=== PATIENT | female | born 1935 | race Caucasian/White ===

== ENCOUNTER 2018-02-27 14:18 | Inpatient (IN) | payer MEDICARE, BC ==
[2018-02-27] MEDS ORDERED: Ondansetron 4 MG Tab.DIS PO PRN (15:24)
[2018-02-27] MEDS ORDERED: Temazepam 15 MG Cap PO PRN (15:24)
[2018-02-27] MEDS ORDERED: Sodium Chloride 0.9% 1,000 ML IV SCH (15:30)
[2018-02-27] MEDS ORDERED: Enoxaparin 40 MG/0.4 ML Syringe SUBCUT SCH ×2 (16:30→20:00)
[2018-02-27] MEDS ORDERED: Iopamidol 612 MG/ML 100 ML Bottle IVPUSH ONE (16:37)
[2018-02-27] MEDS ORDERED: Ampicillin/Sulbactam Na 3 GM in Sodium Chloride 0.9% 100 ML IV SCH (17:00)
[2018-02-27] MEDS: Pantoprazole 40 MG Vial IVPUSH SCH (17:27)
[2018-02-28] MEDS: Pantoprazole 40 MG Vial IVPUSH SCH (06:49)
[2018-02-28 07:43] VITALS: BP 146/55
--- NOTE | 2018-02-28 09:32 | PCM.DCSUM1 ---
Discharge Summary - Hospital Course HPI Initial Comments: This patient is an 83 year old female that was admitted yesterday for abdominal pain. Patient does have history of Diverticulitis. The patient ct results yesterday show no diverticulitis, show gallstones. I have discontinued her abx tx. The patient reports that she has had two episodes of abdominal pain across the lower abdomen. She reports these two episodes are both after she ate a hamburger and fries at [facility]. Today, the patient reports that her pain is completely resolved. She reports that she would like to go home. Patient labs are unremarkable. I will discharge the patient home, she should followup with PCP this week and return if pain returns. - Discharge Data Discharge Date: 02/28/18 Discharge Disposition: Home, Self-Care 01 Condition: Good - Patient Instructions Diet, Other: [place] diet, no greasy foods, no fatty foods, no fast food. Activity: As Tolerated Driving: May Drive Today Showering/Bathing: May Shower Notify Provider of: Fever, Increased Pain, Nausea and/or Vomiting - Discharge Plan Home Medications: Home Meds Acetaminophen [Tylenol Extra Strength] 500 mg PO ASDIRECTED PRN 06/14/14 [ History] Aspirin [Halfprin] 162 mg PO BEDTIME 06/14/14 [History] Cholecalciferol (Vitamin D3) [Vitamin D3] 4,000 units PO DAILY 06/14/14 [History ] atorvaSTATin Calcium [Atorvastatin Calcium] 10 mg PO BEDTIME 06/14/14 [History] Betamethasone Valerate [Valisone 0.1% Crm] 1 applic TOP ASDIRECTED PRN 02/27/18 [History] Estradiol 0.5 mg PO DAILY 02/27/18 [History] Fish Oil/Centre-3 Fatty Acids [Fish Oil 1,000 MG] 1 gm PO DAILY 02/27/18 [History ] Flaxseed Oil 1,000 mg PO DAILY 02/27/18 [History] Lutein/Minerals/Vit A,C & E [Ocuvite] 1 tab PO DAILY 02/27/18 [History] Magnesium Oxide 500 mg PO DAILY 02/27/18 [History] Patient Handouts: Cholelithiasis, [id number] - Discharge Summary/Plan Comment DC Time >30 min.: No Discharge Summary/Plan Comment: Followup with your primary care provider Return to the ER for worsening of condition or any emergent concerns Increase fluids [place] diet, no greasy foods, no fatty foods, no fast food - General Info Date of Service: 02/28/18 Functional Status: Reports: Pain Controlled, Tolerating Diet, Ambulating - Review of Systems General: Reports: No Symptoms HEENT: Reports: No Symptoms Pulmonary: Reports: No Symptoms Cardiovascular: Reports: No Symptoms Gastrointestinal: Reports: No Symptoms Genitourinary: Reports: No Symptoms Musculoskeletal: Reports: No Symptoms Skin: Reports: No Symptoms Neurological: Reports: No Symptoms Psychiatric: Reports: No Symptoms - Patient Data Vitals - Most Recent: Last Vital Signs Temp 97.0 F 02/28/18 07:42 Pulse 60 02/28/18 07:42 Resp 20 02/28/18 07:42 BP 146/55 H 02/28/18 07:42 Pulse Ox 98 02/28/18 07:42 Weight - Most Recent: 219 lb 14.4 oz I&O - Last 24 hours: Intake & Output 02/27/18 02/28/18 02/28/18 22:59 06:59 14:59 Intake Total 365 350 Output Total 750 700 Balance -385 -350 Lab Results - Last 24 hrs: Laboratory Results - last 24 hr 02/27/18 02/27/18 02/27/18 Range/Units 14:25 15:50 15:50 WBC 5.6 (5.0-10.0) 10^3/uL RBC 4.56 (4.00-5.50) 10^6/uL Hgb 11.9 L (12.0-16.0) g/dL Hct 38.2 (37.0-47.0) % MCV 83.8 (82.0-94.0) fL MCH 26.1 L (27.0-32.0) pg MCHC 31.2 L (33.0-38.0) g/dL RDW Coeff of June 15.8 H (11.0-15.0) % Plt Count 140 L (150-400) 10^3/uL Neut % (Auto) 55.2 (35-85) % Lymph % (Auto) 31.9 (10-55) % [place] % (Auto) 10.9 (0-16) % Eos % (Auto) 1.6 (0-5) % Baso % (Auto) 0.4 (0-3) % Neut # (Auto) 3.11 (1.80-7.00) 10^3/uL Lymph # (Auto) 1.79 (1.00-4.80) 10^3/uL [place] # (Auto) 0.61 (0.00-0.80) 10^3/uL Eos # (Auto) 0.09 (0.00-0.45) 10^3/uL Baso # (Auto) 0.02 10^3/uL Sodium 141 (136-145) mEq/L Potassium 4.4 (3.5-5.0) mEq/L Chloride 107 H (98-106) mEq/L Carbon Dioxide 31 (21-32) mmol/L BUN 21 H (7-18) mg/dL Creatinine 1.2 H (0.6-1.0) mg/dL Est Cr Clr Drug Dosing 31.40 mL/min Estimated GFR (MDRD) 43 L (>=60) mL/min Glucose 112 H (75-99) mg/dL Calcium 8.9 (8.4-10.1) mg/dL Total Bilirubin 0.6 (0.0-1.0) mg/dL AST 22 (15-37) U/L ALT 18 (12-78) U/L Alkaline Phosphatase 83 (46-116) U/L C-Reactive Protein 0.5 (0.2-0.8) mg/dL Total Protein 8.1 (6.4-8.2) g/dL Albumin 3.7 (3.4-5.0) g/dL Amylase (25-115) U/L Urine Color Yellow (YELLOW) Urine Appearance Clear (CLEAR) Urine pH 5.5 (4.5-8.0) Ur Specific [place] 1.010 (1.003-1.020) Urine Protein Negative (NEGATIVE) mg/dL Urine Glucose (UA) Negative (NEGATIVE) mg/dL Urine Ketones Negative (NEGATIVE) mg/dL Urine Occult Blood Negative (NEGATIVE) Urine Nitrite Negative (NEGATIVE) Urine Bilirubin Negative (NEGATIVE) Urine Urobilinogen 0.2 (0.2-1.0) EU/dL Ur Leukocyte Esterase Negative (NEGATIVE) Urine RBC Not seen (0-5) /HPF Urine WBC 0-5 (0-5) /HPF Ur Squamous Epith Cells Occasional H (NOT SEEN) /HPF Urine Bacteria Occasional H (NOT SEEN) /HPF 02/28/18 02/28/18 Range/Units 07:20 07:20 WBC 4.1 L (5.0-10.0) 10^3/uL RBC 4.49 (4.00-5.50) 10^6/uL Hgb 11.7 L (12.0-16.0) g/dL Hct 38.0 (37.0-47.0) % MCV 84.6 (82.0-94.0) fL MCH 26.1 L (27.0-32.0) pg MCHC 30.8 L (33.0-38.0) g/dL RDW Coeff of June 15.7 H (11.0-15.0) % Plt Count 136 L (150-400) 10^3/uL Neut % (Auto) 50.6 (35-85) % Lymph % (Auto) 34.3 (10-55) % [place] % (Auto) 13.0 (0-16) % Eos % (Auto) 1.9 (0-5) % Baso % (Auto) 0.2 (0-3) % Neut # (Auto) 2.09 (1.80-7.00) 10^3/uL Lymph # (Auto) 1.42 (1.00-4.80) 10^3/uL [place] # (Auto) 0.54 (0.00-0.80) 10^3/uL Eos # (Auto) 0.08 (0.00-0.45) 10^3/uL Baso # (Auto) 0.01 10^3/uL Sodium 140 (136-145) mEq/L Potassium 4.5 (3.5-5.0) mEq/L Chloride 107 H (98-106) mEq/L Carbon Dioxide 31 (21-32) mmol/L BUN 14 (7-18) mg/dL Creatinine 1.1 H (0.6-1.0) mg/dL Est Cr Clr Drug Dosing 34.26 mL/min Estimated GFR (MDRD) 47 L (>=60) mL/min Glucose 92 (75-99) mg/dL Calcium 8.4 (8.4-10.1) mg/dL Total Bilirubin 0.7 (0.0-1.0) mg/dL AST 19 (15-37) U/L ALT 15 (12-78) U/L Alkaline Phosphatase 73 (46-116) U/L C-Reactive Protein (0.2-0.8) mg/dL Total Protein 7.5 (6.4-8.2) g/dL Albumin 3.3 L (3.4-5.0) g/dL Amylase 64 (25-115) U/L Urine Color (YELLOW) Urine Appearance (CLEAR) Urine pH (4.5-8.0) Ur Specific [place] (1.003-1.020) Urine Protein (NEGATIVE) mg/dL Urine Glucose (UA) (NEGATIVE) mg/dL Urine Ketones (NEGATIVE) mg/dL Urine Occult Blood (NEGATIVE) Urine Nitrite (NEGATIVE) Urine Bilirubin (NEGATIVE) Urine Urobilinogen (0.2-1.0) EU/dL Ur Leukocyte Esterase (NEGATIVE) Urine RBC (0-5) /HPF Urine WBC (0-5) /HPF Ur Squamous Epith Cells (NOT SEEN) /HPF Urine Bacteria (NOT SEEN) /HPF Med Orders - Current: Current Medications Enoxaparin Sodium (Lovenox) 40 mg SUBCUT Q24H [facility] Last Admin: 02/27/18 19:47 Dose: 40 mg Sodium Chloride (Normal Saline) 1,000 mls @ 75 mls/hr IV ASDIRECTED [facility] Last Admin: 02/27/18 17:27 Dose: 75 mls/hr Ondansetron HCl (Zofran Odt) 4 mg PO Q4H PRN PRN Reason: nausea, able to take PO Pantoprazole Sodium (Protonix Iv) 40 mg IVPUSH DAILY@0700 [facility] Last Admin: 02/28/18 06:49 Dose: 40 mg Temazepam (Restoril) 15 mg PO BEDTIME PRN PRN Reason: Sleep Discontinued Medications Ampicillin Sodium/Sulbactam (Sodium 3 gm/ Sodium Chloride) 100 mls @ 200 mls/ hr IV 0400,1000,1600,2200 [facility] Last Admin: 02/27/18 17:28 Dose: 200 mls/hr Iopamidol (Isovue-300 (61%)) 100 ml IVPUSH ONETIME ONE Stop: 02/27/18 16:38 Last Admin: 02/27/18 17:01 Dose: 100 ml - Exam General: Reports: Alert, Oriented, Cooperative, No Acute Distress Neck: Reports: Supple Lungs: Reports: Clear to Auscultation, Normal Respiratory Effort Cardiovascular: Reports: Regular Rate, Regular Rhythm, Murmurs (grade 3) GI/Abdominal Exam: Normal Bowel Sounds, Soft, Non-Tender, No Organomegaly, No Distention, No Abnormal Bruit, No Mass, Pelvis Stable (Female) Exam: Deferred Rectal (Female) Exam: Deferred Back Exam: Reports: Normal Inspection, Full Range of Motion Extremities: Normal Inspection, Normal Range of Motion, Non-Tender, Normal Capillary Refill, Pedal Edema (+1 BLE, chronic. ) Skin: Reports: Warm, Dry, Intact Neurological: Reports: No New Focal Deficit, Normal Gait, Normal Speech Psy/Mental Status: Reports: Alert, Normal Affect, Normal Mood
== END 2018-02-28 10:40 | disposition home or self-care (01) | DRG 392 ==
LOC: CC.MS 14:18 → CC.FCMC 14:18 → CC.MS 14:58 → UNDOADMIN 14:58 → CC.MS 15:24
PROVIDERS: ADMIT Family Medicine; ATTEND Family Medicine
DX: R10.30 Lower abdominal pain, unspecified (principal); R30.0 Dysuria; I25.10 Atherosclerotic heart disease of native coronary artery without angina pectoris; R39.15 Urgency of urination; R35.0 Frequency of micturition; R32 Unspecified urinary incontinence; Z88.7 Allergy status to serum and vaccine; Z96.659 Presence of unspecified artificial knee joint; Z90.710 Acquired absence of both cervix and uterus; Z88.8 Allergy status to other drugs, medicaments and biological substances; Z88.1 Allergy status to other antibiotic agents; Z91.040 Latex allergy status; Z79.82 Long term (current) use of aspirin; Z79.899 Other long term (current) drug therapy
CPT/HCPCS: 36415; 74177; 76705; 80053; 81001; 82150; 85025; 86140; C9113; J0295; J1650; J7030; J7050; Q9967

== ENCOUNTER 2020-03-18 14:48 | Inpatient (IN) | payer MEDICARE, BC ==
[2020-03-18] MEDS ORDERED: Acetaminophen/HYDROcodone 325-5 MG Tab PO PRN (15:02)
[2020-03-18] MEDS ORDERED: Sodium Chloride 0.9% 10 ML Syringe FLUSH PRN (15:02)
[2020-03-18 15:35] LABS: CHLORIDE,CL 106 mEq/L (98-106); SODIUM,NA 140 mEq/L (136-145)
[2020-03-18] MEDS: Enoxaparin 30 MG/0.3 ML Syringe SUBCUT SCH (16:59)
[2020-03-18] MEDS: Acetaminophen 325 MG Tab PO PRN (18:07)
--- NOTE | 2020-03-19 15:02 | PCM.PN ---
- General Info Date of Service: 03/19/20 Functional Status: Reports: Pain Controlled, Tolerating Diet, Ambulating - Review of Systems General: Reports: No Symptoms, Fever HEENT: Reports: No Symptoms Pulmonary: Reports: No Symptoms Cardiovascular: Reports: No Symptoms Gastrointestinal: Reports: No Symptoms Genitourinary: Reports: No Symptoms Musculoskeletal: Reports: Leg Pain (RLL pain) Skin: Reports: Bruising (RLL), Other (Redness RLL) Neurological: Reports: No Symptoms Psychiatric: Reports: No Symptoms - Patient Data Vitals - Most Recent: Last Vital Signs Temp 97.8 F 03/19/20 11:19 Pulse 61 03/19/20 11:19 Resp 16 03/19/20 11:19 BP 104/40 L 03/19/20 11:19 Pulse Ox 96 03/19/20 11:19 Weight - Most Recent: 220 lb Lab Results Last 24 Hours: Laboratory Results - last 24 hr 03/18/20 03/18/20 03/19/20 Range/Units 15:02 15:02 05:00 WBC 6.6 5.2 (5.0-10.0) 10^3/uL RBC 4.19 3.96 L (4.00-5.50) 10^6/uL Hgb 11.2 L 10.6 L (12.0-16.0) g/dL Hct 36.2 L 34.0 L (37.0-47.0) % MCV 86.4 85.9 (82.0-94.0) fL MCH 26.7 L 26.8 L (27.0-32.0) pg MCHC 30.9 L 31.2 L (33.0-38.0) g/dL RDW Coeff of June 15.9 H 15.7 H (11.0-15.0) % Plt Count 182 169 (150-400) 10^3/uL Neut % (Auto) 61.7 56.3 (35-85) % Lymph % (Auto) 25.9 28.3 (10-55) % [place] % (Auto) 10.3 12.1 (0-16) % Eos % (Auto) 1.8 2.9 (0-5) % Baso % (Auto) 0.3 0.4 (0-3) % Neut # (Auto) 4.07 2.92 (1.80-7.00) 10^3/uL Lymph # (Auto) 1.71 1.47 (1.00-4.80) 10^3/uL [place] # (Auto) 0.68 0.63 (0.00-0.80) 10^3/uL Eos # (Auto) 0.12 0.15 (0.00-0.45) 10^3/uL Baso # (Auto) 0.02 0.02 10^3/uL Sodium 140 (136-145) mEq/L Potassium 4.0 (3.5-5.0) mEq/L Chloride 106 (98-106) mEq/L Carbon Dioxide 29 (21-32) mmol/L BUN 23 H (7-18) mg/dL Creatinine 1.3 H (0.6-1.0) mg/dL Est Cr Clr Drug Dosing TNP Estimated GFR (MDRD) 39 L (>=60) mL/min Glucose 163 H D (75-99) mg/dL Calcium 8.9 (8.4-10.1) mg/dL C-Reactive Protein 3.7 H (0.2-0.8) mg/dL 03/19/ Range/Units 05:00 WBC (5.0-10.0) 10^3/uL RBC (4.00-5.50) 10^6/uL Hgb (12.0-16.0) g/dL Hct (37.0-47.0) % MCV (82.0-94.0) fL MCH (27.0-32.0) pg MCHC (33.0-38.0) g/dL RDW Coeff of June (11.0-15.0) % Plt Count (150-400) 10^3/uL Neut % (Auto) (35-85) % Lymph % (Auto) (10-55) % [place] % (Auto) (0-16) % Eos % (Auto) (0-5) % Baso % (Auto) (0-3) % Neut # (Auto) (1.80-7.00) 10^3/uL Lymph # (Auto) (1.00-4.80) 10^3/uL [place] # (Auto) (0.00-0.80) 10^3/uL Eos # (Auto) (0.00-0.45) 10^3/uL Baso # (Auto) 10^3/uL Sodium 142 (136-145) mEq/L Potassium 4.2 (3.5-5.0) mEq/L Chloride 108 H (98-106) mEq/L Carbon Dioxide 27 (21-32) mmol/L BUN 20 H (7-18) mg/dL Creatinine 1.1 H (0.6-1.0) mg/dL Est Cr Clr Drug Dosing 33.03 Estimated GFR (MDRD) 47 L (>=60) mL/min Glucose 98 D (75-99) mg/dL Calcium 8.7 (8.4-10.1) mg/dL C-Reactive Protein 3.0 H (0.2-0.8) mg/dL Med Orders - Current: Current Medications Acetaminophen (Tylenol) 650 mg PO Q4H PRN PRN Reason: Pain (Mild 1-3)/fever Last Admin: 03/18/20 18:07 Dose: 650 mg Documented by: Hydrocodone Bitart/Acetaminophen ([place] 325-5 Mg) 1 tab PO Q4H PRN PRN Reason: Pain (moderate 4-6) Enoxaparin Sodium (Lovenox) 30 mg SUBCUT Q24H PATY Last Admin: 03/18/20 16:59 Dose: 30 mg Documented by: Vancomycin HCl 1.5 gm/ Premix 300 mls @ 300 mls/hr IV Q24H PATY Sodium Chloride (Saline Flush) 10 ml FLUSH ASDIRECTED PRN PRN Reason: Keep Vein Open Vancomycin HCl (Pharmacy To Dose - Vancomycin) 1 dose .XX ASDIRECTED PATY Discontinued Medications Vancomycin HCl 1.5 gm/ Premix 300 mls @ 300 mls/hr IV ONETIME ONE Stop: 03/18/20 16:44 Last Admin: 03/18/20 16:59 Dose: 300 mls/hr Documented by: Vancomycin HCl (Vancomycin 1.5 Gm/300 Ml Premix) Confirm Administered Dose 300 mls @ as directed .ROUTE .STK-MED ONE Stop: 03/18/20 16:56 Last Admin: 03/18/20 17:00 Dose: Not Given Documented by: - Exam General: Alert, Oriented, Cooperative Neck: Supple, Trachea Midline Lungs: Clear to Auscultation, Normal Respiratory Effort Cardiovascular: Regular Rate, Regular Rhythm, Murmurs GI/Abdominal Exam: Soft, Non-Tender Back Exam: Normal Inspection, Full Range of Motion Extremities: No Pedal Edema, Leg Pain (RLL), Increased Warmth, Redness (RLL below the knee godinez/calf circumferental. Marked with pen), Other (No calf tenderness. Negative [place]) Peripheral Pulses: 2+: Radial (L), Radial (R), Posterior Tibial (L), Posterior Tibial (R), Dorsalis Pedis (L), Dorsalis Pedis (R) Skin: Warm, Dry, Intact Psy/Mental Status: Alert, Normal Affect, Normal Mood Sepsis Event Note - Evaluation Sepsis Screening Result: No Definite Risk - Focused Exam Vital Signs: Vital Signs Temp Pulse Resp BP Pulse Ox 03/19/20 11:19 97.8 F 61 16 104/40 L 96 03/19/20 08:00 98.7 F 16 150/55 H 95 03/19/20 04:00 97.9 F 66 18 144/65 H 97 Date Exam was Performed: 03/19/20 Time Exam was Performed: 14:57 - Problem List Review Problem List Initiated/Reviewed/Updated: Yes - My Orders Last 24 Hours: My Active Orders 03/20/20 05:00 BASIC METABOLIC PANEL,BMP [CHEM] DAILY CBC WITH AUTO DIFF [HEME] DAILY CRP [C-REACTIVE PROTEIN] [CHEM] DAILY 03/21/20 05:00 BASIC METABOLIC PANEL,BMP [CHEM] DAILY CBC WITH AUTO DIFF [HEME] DAILY CRP [C-REACTIVE PROTEIN] [CHEM] DAILY - Plan Plan:: Patient was admitted for cellulitis to the [facility]. Patient had injured her leg ab out 1 week ago. Patient on IV abx. Her labs yesterday were BUN 23, CR 1.3, CRP 3.7. Today labs are BUN 20, CR 1.1, CRP 3.3. The patient today reports she has mild pain at the site. She denies n, v, d, f. No open wound is seen. Will continue abx and current admit plan. Will redraw labs tomorrow and see again. She has been ambulating around the hospital without difficulty today.
[2020-03-19] MEDS: Enoxaparin 30 MG/0.3 ML Syringe SUBCUT SCH (16:09)
[2020-03-19] MEDS: atorvaSTATin 10 MG Tab PO SCH (19:44)
[2020-03-19] MEDS ORDERED: Aspirin 81 MG Tab.EC PO SCH (20:00)
[2020-03-20] MEDS: Beta-Carotene (Vitamin A) w/Vitamin C & E plus Minerals Tab PO SCH (07:48)
[2020-03-20] MEDS ORDERED: Non-Formulary Medication 1 Each (Fish Oil/Omega-3 Fatty Acids [Fish Oil 1,000 Mg] 1 GM) PO SCH (08:00)
--- NOTE | 2020-03-20 09:28 | PCM.PN ---
- General Info Date of Service: 03/20/20 Functional Status: Reports: Pain Controlled, Tolerating Diet, Ambulating - Review of Systems General: Reports: No Symptoms. Denies: Fever HEENT: Reports: No Symptoms Pulmonary: Reports: No Symptoms Cardiovascular: Reports: No Symptoms Gastrointestinal: Reports: No Symptoms Genitourinary: Reports: No Symptoms Musculoskeletal: Reports: Leg Pain (RLE) Skin: Reports: Bruising (RLE), Other (Redness RLE) Neurological: Reports: No Symptoms Psychiatric: Reports: No Symptoms - Patient Data Vitals - Most Recent: Last Vital Signs Temp 98.5 F 03/20/20 08:00 Pulse 60 03/20/20 08:00 Resp 16 03/20/20 08:00 BP 136/58 L 03/20/20 08:00 Pulse Ox 96 03/20/20 08:00 Weight - Most Recent: 220 lb Lab Results Last 24 Hours: Laboratory Results - last 24 hr 03/20/20 03/20/20 Range/Units 05:00 05:00 WBC 4.8 L (5.0-10.0) 10^3/uL RBC 3.75 L (4.00-5.50) 10^6/uL Hgb 9.9 L (12.0-16.0) g/dL Hct 32.3 L (37.0-47.0) % MCV 86.1 (82.0-94.0) fL MCH 26.4 L (27.0-32.0) pg MCHC 30.7 L (33.0-38.0) g/dL RDW Coeff of June 15.8 H (11.0-15.0) % Plt Count 168 (150-400) 10^3/uL Neut % (Auto) 51.1 (35-85) % Lymph % (Auto) 33.2 (10-55) % [place] % (Auto) 12.6 (0-16) % Eos % (Auto) 2.7 (0-5) % Baso % (Auto) 0.4 (0-3) % Neut # (Auto) 2.43 (1.80-7.00) 10^3/uL Lymph # (Auto) 1.58 (1.00-4.80) 10^3/uL [place] # (Auto) 0.60 (0.00-0.80) 10^3/uL Eos # (Auto) 0.13 (0.00-0.45) 10^3/uL Baso # (Auto) 0.02 10^3/uL Sodium 142 (136-145) mEq/L Potassium 4.3 (3.5-5.0) mEq/L Chloride 109 H (98-106) mEq/L Carbon Dioxide 28 (21-32) mmol/L BUN 17 (7-18) mg/dL Creatinine 1.1 H (0.6-1.0) mg/dL Est Cr Clr Drug Dosing 33.03 mL/min Estimated GFR (MDRD) 47 L (>=60) mL/min Glucose 97 (75-99) mg/dL Calcium 8.5 (8.4-10.1) mg/dL C-Reactive Protein 2.5 H (0.2-0.8) mg/dL Med Orders - Current: Current Medications Acetaminophen (Tylenol) 650 mg PO Q4H PRN PRN Reason: Pain (Mild 1-3)/fever Last Admin: 03/18/20 18:07 Dose: 650 mg Documented by: Hydrocodone Bitart/Acetaminophen ([place] 325-5 Mg) 1 tab PO Q4H PRN PRN Reason: Pain (moderate 4-6) Aspirin (Halfprin) 81 mg PO BEDTIME [facility] Atorvastatin Calcium (Lipitor) 10 mg PO BEDTIME [facility] Last Admin: 03/19/20 19:44 Dose: 10 mg Documented by: Enoxaparin Sodium (Lovenox) 30 mg SUBCUT Q24H [facility] Last Admin: 03/19/20 16:09 Dose: 30 mg Documented by: Vancomycin HCl 1.5 gm/ Premix 300 mls @ 300 mls/hr IV Q24H [facility] Last Admin: 03/19/20 16:07 Dose: 300 mls/hr Documented by: Magnesium Oxide (Magnesium Oxide) 500 mg PO DAILY [facility] Last Admin: 03/20/20 07:48 Dose: 500 mg Documented by: Multivitamins/Minerals (Prosight) 1 tab PO DAILY [facility] Last Admin: 03/20/20 07:48 Dose: 1 tab Documented by: Sodium Chloride (Saline Flush) 10 ml FLUSH ASDIRECTED PRN PRN Reason: Keep Vein Open Vancomycin HCl (Pharmacy To Dose - Vancomycin) 1 dose .XX ASDIRECTED PATY Discontinued Medications Aspirin (Halfprin) 162 mg PO BEDTIME PATY Last Admin: 03/19/20 19:44 Dose: 81 mg Documented by: Vancomycin HCl 1.5 gm/ Premix 300 mls @ 300 mls/hr IV ONETIME ONE Stop: 03/18/20 16:44 Last Admin: 03/18/20 16:59 Dose: 300 mls/hr Documented by: Vancomycin HCl (Vancomycin 1.5 Gm/300 Ml Premix) Confirm Administered Dose 300 mls @ as directed .ROUTE .STK-MED ONE Stop: 03/18/20 16:56 Last Admin: 03/18/20 17:00 Dose: Not Given Documented by: - Exam General: Alert, Oriented, Cooperative Neck: Supple, Trachea Midline Lungs: Clear to Auscultation, Normal Respiratory Effort Cardiovascular: Regular Rate, Murmurs Extremities: Normal Range of Motion, Normal Capillary Refill, Increased Warmth (RLE bleow the knee. No foot involved. Circumferential calf. ), Redness (RLE. with eccyhmosis as well. ) Peripheral Pulses: 2+: Radial (L), Radial (R), Posterior Tibial (L), Posterior Tibial (R), Dorsalis Pedis (L), Dorsalis Pedis (R) Skin: Warm, Dry, Intact, Ecchymosis (RLL) Neurological: Normal Gait, Normal Speech Psy/Mental Status: Alert, Normal Affect, Normal Mood Sepsis Event Note - Evaluation Sepsis Screening Result: No Definite Risk - Focused Exam Vital Signs: Vital Signs Temp Pulse Resp BP Pulse Ox 03/20/20 08:00 98.5 F 60 16 136/58 L 96 03/20/20 03:43 98.3 F 71 16 137/56 L 95 03/19/20 23:30 98.9 F 71 16 164/62 H 95 Date Exam was Performed: 03/20/20 Time Exam was Performed: 09:23 - Problem List Review Problem List Initiated/Reviewed/Updated: Yes - My Orders Last 24 Hours: My Active Orders 03/19/20 20:00 atorvaSTATin [Lipitor] 10 mg PO BEDTIME 03/20/20 08:00 Beta-Carotene(A) w/C & E/Min [Prosight] 1 tab PO DAILY Magnesium Oxide 500 mg PO DAILY 03/20/20 20:00 Aspirin [Halfprin] 81 mg PO BEDTIME 03/21/20 05:00 BASIC METABOLIC PANEL,BMP [CHEM] DAILY CBC WITH AUTO DIFF [HEME] DAILY CRP [C-REACTIVE PROTEIN] [CHEM] DAILY 03/21/20 08:00 VL Duplex Lwr Ext Veins Ltd Rt [US] Routine - Plan Plan:: 03/19/20 1430 Patient was admitted for cellulitis to the [facility]. Patient had injured her leg about 1 week ago. Patient on IV abx. Her labs yesterday were BUN 23, CR 1.3, CRP 3.7. Today labs are BUN 20, CR 1.1, CRP 3.3. The patient today reports she has mild pain at the site. She denies n, v, d, f. No open wound is seen. Will continue abx and current admit plan. Will redraw labs tomorrow and see again. She has been ambulating around the hospital without difficulty today. 03/20/20 0750 The patient today reports she is feeling a little better. She reports that she thinks her leg is getting better. She has been up and walking around the hallways without difficulty. The patient asks if she is going home today or tomorrow. I explained she is not going home today, she is okay with this plan. Her labs today are hgb 9.9, CR 1.1, CRP improving 2.5. I have ordered an US of the RLE to R/O DVT. Will continue admit on abx, US tomorrow.
[2020-03-20] MEDS: Enoxaparin 30 MG/0.3 ML Syringe SUBCUT SCH (17:06)
[2020-03-20] MEDS: Acetaminophen 325 MG Tab PO PRN (17:20)
[2020-03-20] MEDS: atorvaSTATin 10 MG Tab PO SCH (19:32)
[2020-03-20] MEDS: Aspirin 81 MG Tab.EC PO SCH (19:32)
[2020-03-21] MEDS: Beta-Carotene (Vitamin A) w/Vitamin C & E plus Minerals Tab PO SCH (07:39)
--- NOTE | 2020-03-21 09:23 | PCM.PN ---
- General Info Date of Service: 03/21/20 Admission Dx/Problem (Free Text): Cellulitis RLE Functional Status: Reports: Pain Controlled, Tolerating Diet, Ambulating - Review of Systems General: Denies: Fever, Weakness, Fatigue, Malaise HEENT: Reports: No Symptoms Pulmonary: Denies: Shortness of Breath, Cough Cardiovascular: Reports: Edema. Denies: Chest Pain, Lightheadedness Gastrointestinal: Denies: Abdominal Pain, Nausea, Vomiting Genitourinary: Reports: No Symptoms Musculoskeletal: Reports: Leg Pain Skin: Reports: Bruising, Other (redness) Neurological: Reports: No Symptoms - Patient Data Vitals - Most Recent: Last Vital Signs Temp 98.0 F 03/21/20 08:00 Pulse 69 03/21/20 08:00 Resp 18 03/21/20 08:00 BP 155/64 H 03/21/20 08:00 Pulse Ox 98 03/21/20 08:00 Weight - Most Recent: 220 lb Lab Results Last 24 Hours: Laboratory Results - last 24 hr 03/21/20 03/21/20 Range/Units 05:00 05:00 WBC 4.9 L (5.0-10.0) 10^3/uL RBC 4.25 (4.00-5.50) 10^6/uL Hgb 11.2 L (12.0-16.0) g/dL Hct 36.3 L (37.0-47.0) % MCV 85.4 (82.0-94.0) fL MCH 26.4 L (27.0-32.0) pg MCHC 30.9 L (33.0-38.0) g/dL RDW Coeff of June 15.6 H (11.0-15.0) % Plt Count 176 (150-400) 10^3/uL Neut % (Auto) 52.7 (35-85) % Lymph % (Auto) 30.7 (10-55) % [place] % (Auto) 12.9 (0-16) % Eos % (Auto) 3.3 (0-5) % Baso % (Auto) 0.4 (0-3) % Neut # (Auto) 2.58 (1.80-7.00) 10^3/uL Lymph # (Auto) 1.50 (1.00-4.80) 10^3/uL [place] # (Auto) 0.63 (0.00-0.80) 10^3/uL Eos # (Auto) 0.16 (0.00-0.45) 10^3/uL Baso # (Auto) 0.02 10^3/uL Sodium 141 (136-145) mEq/L Potassium 4.3 (3.5-5.0) mEq/L Chloride 108 H (98-106) mEq/L Carbon Dioxide 28 (21-32) mmol/L BUN 17 (7-18) mg/dL Creatinine 1.1 H (0.6-1.0) mg/dL Est Cr Clr Drug Dosing 33.03 mL/min Estimated GFR (MDRD) 47 L (>=60) mL/min Glucose 96 (75-99) mg/dL Calcium 8.6 (8.4-10.1) mg/dL C-Reactive Protein 2.1 H (0.2-0.8) mg/dL Med Orders - Current: Current Medications Acetaminophen (Tylenol) 650 mg PO Q4H PRN PRN Reason: Pain (Mild 1-3)/fever Last Admin: 03/20/20 17:20 Dose: 650 mg Documented by: Hydrocodone Bitart/Acetaminophen ([place] 325-5 Mg) 1 tab PO Q4H PRN PRN Reason: Pain (moderate 4-6) Aspirin (Halfprin) 81 mg PO BEDTIME [facility] Last Admin: 03/20/20 19:32 Dose: 81 mg Documented by: Atorvastatin Calcium (Lipitor) 10 mg PO BEDTIME [facility] Last Admin: 03/20/20 19:32 Dose: 10 mg Documented by: Enoxaparin Sodium (Lovenox) 30 mg SUBCUT Q24H [facility] Last Admin: 03/20/20 17:06 Dose: 30 mg Documented by: Vancomycin HCl 1.5 gm/ Premix 300 mls @ 300 mls/hr IV Q24H [facility] Last Admin: 03/20/20 17:06 Dose: 300 mls/hr Documented by: Magnesium Oxide (Magnesium Oxide) 500 mg PO DAILY [facility] Last Admin: 03/21/20 07:39 Dose: 500 mg Documented by: Multivitamins/Minerals (Prosight) 1 tab PO DAILY [facility] Last Admin: 03/21/20 07:39 Dose: 1 tab Documented by: Sodium Chloride (Saline Flush) 10 ml FLUSH ASDIRECTED PRN PRN Reason: Keep Vein Open Vancomycin HCl (Pharmacy To Dose - Vancomycin) 1 dose .XX ASDIRECTED [facility] Discontinued Medications Aspirin (Halfprin) 162 mg PO BEDTIME [facility] Last Admin: 03/19/20 19:44 Dose: 81 mg Documented by: Vancomycin HCl 1.5 gm/ Premix 300 mls @ 300 mls/hr IV ONETIME ONE Stop: 03/18/20 16:44 Last Admin: 03/18/20 16:59 Dose: 300 mls/hr Documented by: Vancomycin HCl (Vancomycin 1.5 Gm/300 Ml Premix) Confirm Administered Dose 300 mls @ as directed .ROUTE .STK-MED ONE Stop: 03/18/20 16:56 Last Admin: 03/18/20 17:00 Dose: Not Given Documented by: - Exam General: Alert, Oriented HEENT: Mucous Membr. Moist/[place] Neck: Supple Lungs: Clear to Auscultation, Normal Respiratory Effort Cardiovascular: Regular Rate, Regular Rhythm, Murmurs GI/Abdominal Exam: Normal Bowel Sounds, Soft, Non-Tender Extremities: Other (RLE does remain red, bruised but is improving per skin markings. Warmth noted. No calf pain. Edema noted bilaterally, right greater than left.) Skin: Warm, Dry Wound/Incisions: Erythema Improving Neurological: No New Focal Deficit Sepsis Event Note - Evaluation Sepsis Screening Result: No Definite Risk - Focused Exam Vital Signs: Vital Signs Temp Pulse Resp BP Pulse Ox 03/21/20 08:00 98.0 F 69 18 155/64 H 98 03/21/20 03:59 98.3 F 65 16 158/62 H 96 03/20/20 23:30 98.3 F 71 15 141/50 H 96 Date Exam was Performed: 03/21/20 Time Exam was Performed: 20:53 - Problem List & Annotations (1) Cellulitis SNOMED Code(s): 020953128 Code(s): L03.90 - CELLULITIS, UNSPECIFIED Status: Acute Priority: High Current Visit: Yes Qualifiers: Site of cellulitis: extremity Site of cellulitis of extremity: lower extremity Laterality: right Qualified Code(s): L03.115 - Cellulitis of right lower limb - Problem List Review Problem List Initiated/Reviewed/Updated: Yes - Assessment Assessment:: RLE cellulitis - Plan Plan:: 03/19/20 1430 Patient was admitted for cellulitis to the [facility]. Patient had injured her leg about 1 week ago. Patient on IV abx. Her labs yesterday were BUN 23, CR 1.3, CRP 3.7. Today labs are BUN 20, CR 1.1, CRP 3.3. The patient today reports she has mild pain at the site. She denies n, v, d, f. No open wound is seen. Will continue abx and current admit plan. Will redraw labs tomorrow and see again. She has been ambulating around the hospital without difficulty today. 03/20/20 0750 The patient today reports she is feeling a little better. She reports that she thinks her leg is getting better. She has been up and walking around the hallways without difficulty. The patient asks if she is going home today or tomorrow. I explained she is not going home today, she is okay with this plan. Her labs today are hgb 9.9, CR 1.1, CRP improving 2.5. I have ordered an US of the RLE to R/O DVT. Will continue admit on abx, US tomorrow. 03-21-2020 Patient is doing well. Up and ambulating throughout the day. Leg is improving per nursing staff and noted on skin markings. She has less redness, bruising. Afebrile. WBC is 4.8. CRP 2.1. Ultrasound of right leg is being done this am per [facility] order to rule out DVT. Will continue with current IV antibiotic, ambulate, elevate legs. Probable discharge home tomorrow.
[2020-03-21] MEDS: Enoxaparin 30 MG/0.3 ML Syringe SUBCUT SCH (16:44)
[2020-03-21] MEDS: Aspirin 81 MG Tab.EC PO SCH (19:24)
[2020-03-21] MEDS: atorvaSTATin 10 MG Tab PO SCH (19:25)
[2020-03-22] MEDS: Beta-Carotene (Vitamin A) w/Vitamin C & E plus Minerals Tab PO SCH (07:47)
[2020-03-22 13:05] VITALS: BP 160/53; PULSE 70
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
== END 2020-03-22 16:52 | disposition home or self-care (01) | DRG 603 ==
LOC: UNDOADMIN 14:48 → CC.MS 14:48
PROVIDERS: ADMIT Physician Assistant Medical; ATTEND Family Medicine
DX: L03.115 Cellulitis of right lower limb (principal); M50.30 Other cervical disc degeneration, unspecified cervical region; M51.36 Other intervertebral disc degeneration, lumbar region; M75.40 Impingement syndrome of unspecified shoulder; Z96.652 Presence of left artificial knee joint; S80.11XA Contusion of right lower leg, initial encounter; Z79.82 Long term (current) use of aspirin; Z79.899 Other long term (current) drug therapy; Z90.710 Acquired absence of both cervix and uterus; Z95.1 Presence of aortocoronary bypass graft; Z98.890 Other specified postprocedural states; Z90.89 Acquired absence of other organs; Z95.2 Presence of prosthetic heart valve; Z88.1 Allergy status to other antibiotic agents; Z88.7 Allergy status to serum and vaccine; Z87.440 Personal history of urinary (tract) infections
CPT/HCPCS: 36415; 73590-RT; 80048; 80202; 85025; 86140; 93971-RT; A9270-GY; J1650; J3370

== ENCOUNTER 2021-02-28 03:14 | Inpatient (IN) | payer MEDICARE, BC ==
--- NOTE | 2021-02-28 03:56 | EDM.PDOC ---
ED HPI GENERAL MEDICAL PROBLEM - General Chief Complaint: General Stated Complaint: SOB Time Seen by Provider: 02/28/21 03:54 Source of Information: Reports: Patient History Limitations: Reports: No Limitations - History of Present Illness INITIAL COMMENTS - FREE TEXT/NARRATIVE: This patient is an 86 year old female that presents to the ER. Patient reports that for 5 days she has had a cough that has been nonproductive. She reports then 2 days ago started with shortness of breath, fever, nausea, generally weak, general malaise while at the [facility] of [facility]. Patient reports that her cough and shortness of breath have become worse, until this early this morning she reports she could not breath good. RN reports she arrived with oxygen saturations in the 70s. She is currently 96% on 4L NC. Onset Date: 02/23/21 Duration: Day(s): (5), Getting Worse Location: Reports: Chest Severity: Moderate Improves with: Reports: None Worsens with: Reports: None Associated Symptoms: Reports: Cough, cough w sputum, Fever/Chills, Malaise, Nausea/Vomiting, Shortness of Breath. Denies: Confusion, Chest Pain, Diaphoresis, Headaches, Loss of Appetite, Rash, Seizure, Syncope, Weakness - Related Data Allergies Allergy/AdvReac Type Severity Reaction Status Date / Time latex Allergy Itching Verified 02/28/21 03:47 Tetanus Vaccines and Toxoid Allergy Swelling Verified 02/28/21 03:47 [Tetanus Vaccines & Toxoid] ciprofloxacin [From Cipro] AdvReac Nausea Verified 02/28/21 03:47 Nylon Allergy Itching Uncoded 02/28/21 03:47 Home Meds: Home Meds Aspirin [Halfprin] 81 mg PO BEDTIME 06/14/14 [History] Cholecalciferol (Vitamin D3) [Vitamin D3] 4,000 units PO DAILY 06/14/14 [History] atorvaSTATin Calcium [Atorvastatin Calcium] 10 mg PO BEDTIME 06/14/14 [History] Fish Oil/[place]-3 Fatty Acids [Fish Oil 1,000 MG] 1 gm PO DAILY 02/27/18 [History] Flaxseed Oil 1,000 mg PO DAILY 02/27/18 [History] Lutein/Minerals/Vit A,C & E [Ocuvite] 1 tab PO DAILY 02/27/18 [History] Magnesium Oxide 500 mg PO DAILY 02/27/18 [History] Furosemide 20 mg PO WITHLUNCH 02/28/21 [History] Furosemide 40 mg PO QAM 02/28/21 [History] amLODIPine [Norvasc] 5 mg PO DAILY 02/28/21 [History] Past Medical History HEENT History: Reports: Impaired Vision Cardiovascular History: Reports: Bypass, Hypertension, [place] Gastrointestinal History: Reports: Other (See Below) Other Gastrointestinal History: Diverticulitis Musculoskeletal History: Reports: Arthritis - Past Surgical History HEENT Surgical History: Reports: Cataract Surgery, Tonsillectomy Cardiovascular Surgical History: Reports: None GI Surgical History: Reports: Appendectomy Social & Family History - Family History Family Medical History: No Pertinent Family History - Caffeine Use Caffeine Use: Reports: Coffee ED ROS GENERAL - Review of Systems Review Of Systems: See Below Constitutional: Reports: Fever, Chills, Malaise, Weakness, Fatigue HEENT: Reports: No Symptoms. Denies: Rhinitis, Sinus Problem Respiratory: Reports: Shortness of Breath, Wheezing, Cough, Sputum Cardiovascular: Reports: Dyspnea on Exertion, Edema, Lightheadedness Endocrine: Reports: No Symptoms GI/Abdominal: Reports: Nausea. Denies: Abdominal Pain, Diarrhea, Vomiting : Reports: No Symptoms Musculoskeletal: Reports: No Symptoms Skin: Reports: No Symptoms Neurological: Reports: No Symptoms Psychiatric: Reports: No Symptoms Hematologic/Lymphatic: Reports: No Symptoms Immunologic: Reports: No Symptoms ED EXAM, GENERAL - Physical Exam Exam: See Below Exam Limited By: No Limitations General Appearance: Alert, WD/WN, No Apparent Distress Eye Exam: Bilateral Eye: Normal Inspection, PERRL Ears: Normal External Exam, Normal Canal, Hearing Grossly Normal, Normal TMs Ear Exam: Bilateral Ear: Auricle Normal, Canal Normal, TM normal Nose: Normal Inspection, No Blood Throat/Mouth: Normal Inspection, Normal Lips, Normal Teeth, Normal Gums, Normal Oropharynx, Normal Voice, No Airway Compromise Head: Atraumatic, Normocephalic Neck: Normal Inspection, Supple, Non-Tender, Full Range of Motion Respiratory/Chest: Decreased Breath Sounds (moderate throughout), Crackles (throughout moderate), Rales, Wheezing (slight inspiratory wheeze hear in [place]. ) Cardiovascular: Normal Peripheral Pulses, Regular Rate, Rhythm, No Rub, JVD, Systolic Murmur, Other (EDEMA +4 BLE) Peripheral Pulses: 2+: Radial (L), Radial (R), Posterior Tibial (L), Posterior Tibial (R) GI/Abdominal: Soft, Non-Tender Back Exam: Normal Inspection, Full Range of Motion Extremities: Normal Range of Motion, Normal Capillary Refill, Other (Right 2nd toe ecchymosis with tenderness. Unknown injury per patient. ) Neurological: Alert, Oriented, Normal Cognition, No Motor/Sensory Deficits Psychiatric: Normal Affect, Normal Mood Skin Exam: Warm, Dry, Intact, No Rash, Ecchymosis (right 2nd toe. ) Lymphatic: No Adenopathy #1 Interpretation EKG Date: 02/28/21 Time: 03:46 Rate (Beats/Min): 83 Comparison: No Change (Jun 2019) EKG Interpretation Comments: 1st degree AV block Course - Vital Signs Last Recorded V/S: Last Vital Signs Temp 99.3 F 02/28/21 03:30 Pulse 90 02/28/21 03:30 Resp 22 H 02/28/21 03:30 BP 129/59 L 02/28/21 03:30 Pulse Ox 73 L 02/28/21 03:30 - Orders/Labs/Meds Orders: Active Orders 24 hr Category Date Time Status Patient Status [ADT] Routine ADT 02/28/21 04:38 Active Antiembolic Devices [RC] PER UNIT ROUTINE Care 02/28/21 04:38 Active Cardiac Monitoring [RC] CONTINUOUS Care 02/28/21 04:38 Active Height and Weight [RC] DAILY Care 02/28/21 04:38 Active Height and Weight [RC] UPON Care 02/28/21 04:38 Active Intake and Output [RC] QSHIFT Care 02/28/21 04:38 Active Notify Provider Vital Signs [RC] ASDIRECTED Care 02/28/21 04:38 Active Oxygen Therapy [RC] PRN Care 02/28/21 04:38 Active Pulse Oximetry [RC] PRN Care 02/28/21 04:38 Active RT Aerosol Therapy [RC] ASDIRECTED Care 02/28/21 04:06 Active RT Aerosol Therapy [RC] ASDIRECTED Care 02/28/21 04:38 Active Up With Assistance [RC] ASDIRECTED Care 02/28/21 04:38 Active Up to Chair [RC] ASDIRECTED Care 02/28/21 04:38 Active VTE/DVT Education [RC] PER UNIT ROUTINE Care 02/28/21 04:38 Active Vital Signs [RC] Q4H Care 02/28/21 04:38 Active Heart Healthy Diet [DIET] Diet 02/28/21 Breakfast Active Chest 2V [CR] Stat Exams 02/28/21 03:43 Taken Foot Comp Min 3V Rt [CR] Stat Exams 02/28/21 04:18 Taken BASIC METABOLIC PANEL,BMP [CHEM] DAILY Lab 03/01/21 05:00 Ordered BASIC METABOLIC PANEL,BMP [CHEM] DAILY Lab 03/02/21 05:00 Ordered BASIC METABOLIC PANEL,BMP [CHEM] DAILY Lab 03/03/21 05:00 Ordered BASIC METABOLIC PANEL,BMP [CHEM] DAILY Lab 03/04/21 05:00 Ordered C-REACTIVE PROTEIN [CHEM] DAILY Lab 03/01/21 05:00 Ordered C-REACTIVE PROTEIN [CHEM] DAILY Lab 03/02/21 05:00 Ordered C-REACTIVE PROTEIN [CHEM] DAILY Lab 03/03/21 05:00 Ordered C-REACTIVE PROTEIN [CHEM] DAILY Lab 03/04/21 05:00 Ordered CBC WITH AUTO DIFF [HEME] DAILY Lab 03/01/21 05:00 Ordered CBC WITH AUTO DIFF [HEME] DAILY Lab 03/02/21 05:00 Ordered CBC WITH AUTO DIFF [HEME] DAILY Lab 03/03/21 05:00 Ordered CBC WITH AUTO DIFF [HEME] DAILY Lab 03/04/21 05:00 Ordered CULTURE BLOOD [BC] Stat Lab 02/28/21 04:00 Received CULTURE BLOOD [BC] Stat Lab 02/28/21 04:20 Received PRO B-TYPE NATRIUR PEPT,BNPPRO [CHEM] DAILY Lab 03/01/21 05:00 Ordered PRO B-TYPE NATRIUR PEPT,BNPPRO [CHEM] DAILY Lab 03/02/21 05:00 Ordered PRO B-TYPE NATRIUR PEPT,BNPPRO [CHEM] DAILY Lab 03/03/21 05:00 Ordered PRO B-TYPE NATRIUR PEPT,BNPPRO [CHEM] DAILY Lab 03/04/21 05:00 Ordered Acetaminophen [TylenoL] Med 02/28/21 04:38 Active 650 mg PO Q4H PRN Albuterol/Ipratropium [DuoNeb 3.0-0.5 MG/3 ML] Med 02/28/21 04:38 Active 3 ml NEB Q4H PRN Aspirin [Halfprin] Med 02/28/21 20:00 Active 81 mg PO BEDTIME Cholecalciferol (Vitamin D3) [Vitamin D3] Med 02/28/21 08:00 Ordered 4,000 units PO DAILY Enoxaparin [Lovenox] Med 02/28/21 05:00 Once 30 mg SUBCUT NOW ONE Fish Oil/[place]-3 Fatty Acids [Fish Oil 1,000 MG] Med 02/28/21 08:00 Ordered 1 gm PO DAILY Flaxseed Oil [Flaxseed Oil] Med 02/28/21 08:00 Ordered 1,000 mg PO DAILY Furosemide [Lasix] Med 02/28/21 20:00 Active 40 mg IVPUSH BID Ibuprofen [Motrin] Med 02/28/21 04:38 Active 600 mg PO Q6H PRN Levofloxacin/Dextrose 5%-Water [Levaquin in D5W 750 MG/ Med 02/28/21 04:38 Ordered 150 ML] 750 mg Premix Bag 1 bag IV Q24H Lutein/Minerals/Vit A,C & E [Ocuvite] Med 02/28/21 08:00 Ordered 1 tab PO DAILY Magnesium Oxide [Magnesium Oxide] Med 02/28/21 08:00 Ordered 500 mg PO DAILY Morphine Med 02/28/21 04:38 Ordered 2 mg IVPUSH Q2H PRN Ondansetron [Zofran] Med 02/28/21 04:38 Ordered 4 mg IV Q6H PRN amLODIPine [Norvasc] Med 02/28/21 08:00 Ordered 5 mg PO DAILY atorvaSTATin [Lipitor] Med 02/28/21 20:00 Active 10 mg PO BEDTIME methylPREDNISolone Sod Succ [Solu-MEDROL] Med 02/28/21 04:38 Ordered 62.5 mg IVPUSH Q12H Antiembolic Hose [OM.PC] Per Unit Routine Oth 02/28/21 04:38 Ordered Resuscitation Status Routine Resus Stat 02/28/21 04:19 Ordered EKG 12 Lead [EK] Stat Ther 02/28/21 03:43 Ordered Medication Orders Acetaminophen (Acetaminophen 325 Mg Tab) 650 mg PO Q4H PRN PRN Reason: Pain (Mild 1-3)/fever Albuterol/Ipratropium (Albuterol/Ipratropium 3.0-0.5 Mg/3 Ml Neb Soln) 3 ml NEB Q4H PRN PRN Reason: Shortness Of Breath/wheezing Aspirin (Aspirin 81 Mg Tab.Ec) 81 mg PO BEDTIME PATY Atorvastatin Calcium (Atorvastatin 10 Mg Tab) 10 mg PO BEDTIME PATY Enoxaparin Sodium (Enoxaparin 30 Mg/0.3 Ml Syringe) 30 mg SUBCUT NOW ONE Stop: 02/28/21 05:01 Enoxaparin Sodium (Enoxaparin 30 Mg/0.3 Ml Syringe) 30 mg SUBCUT DAILY PATY Furosemide (Furosemide 40 Mg/4 Ml Vial) 40 mg IVPUSH BID PATY Sodium Chloride (Normal Saline) 500 mls @ 500 mls/hr IV .BOLUS PATY Levofloxacin/Dextrose 750 mg/ (Premix) 150 mls @ 100 mls/hr IV Q24H PATY Ibuprofen (Ibuprofen 200 Mg Tab) 600 mg PO Q6H PRN PRN Reason: Pain (mild 1-3) Methylprednisolone Sodium Succinate (Methylprednisolone Sodium Succinate 125 Mg/2 Ml Sdv) 62.5 mg IVPUSH Q12H PATY Morphine Sulfate (Morphine 2 Mg/Ml Syringe) 2 mg IVPUSH Q2H PRN PRN Reason: Pain (severe 7-10) Non-Formulary Medication (Amlodipine [Norvasc]) 5 mg PO DAILY [facility] Non-Formulary Medication (Cholecalciferol (Vitamin D3) [Vitamin D3]) 4,000 units PO DAILY [facility] Non-Formulary Medication (Fish Oil/[place]-3 Fatty Acids [Fish Oil 1,000 Mg]) 1 gm PO DAILY [facility] Non-Formulary Medication (Flaxseed Oil [Flaxseed Oil]) 1,000 mg PO DAILY [facility] Non-Formulary Medication (Lutein/Minerals/Vit A,C & E [Ocuvite]) 1 tab PO DAILY [facility] Non-Formulary Medication (Magnesium Oxide [Magnesium Oxide]) 500 mg PO DAILY [facility] Ondansetron HCl (Ondansetron 4 Mg/2 Ml Sdv) 4 mg IV Q6H PRN PRN Reason: Nausea/Vomiting Labs: Laboratory Tests 02/28/21 02/28/21 02/28/21 Range/Units 04:00 04:00 04:00 WBC 4.0 (4.0-11.0) 10^3/uL RBC 4.20 (4.00-5.50) x10^6/uL Hgb 10.9 L (12.0-16.0) g/dL Hct 35.2 L (37.0-47.0) % MCV 83.8 (83.0-97.0) fL MCH 26.0 L (27.0-32.0) pg MCHC 31.0 L (32.0-36.0) g/dL RDW Coeff of June 15.5 H (11.0-15.0) % Plt Count 142 L (150-400) 10^3/uL Immature Gran % (Auto) 0.3 (0.0-4.9) % Neut % (Auto) 59.2 (41-71) % Lymph % (Auto) 26.6 (24-44) % [place] % (Auto) 13.1 H (0-10) % Eos % (Auto) 0.5 (0-6) % Baso % (Auto) 0.3 (0-1) % Neut # (Auto) 2.36 (1.80-8.00) x10^3/uL Lymph # (Auto) 1.06 (0.60-5.00) 10^3/uL [place] # (Auto) 0.52 (0.00-1.50) 10^3/uL Eos # (Auto) 0.02 (0.00-1.50) 10^3/uL Baso # (Auto) 0.01 (0.00-0.50) 10^3/uL Immature Gran # (Auto) 0.01 (0.00-0.49) 10^3/uL PT 10.5 (9.7-12.3) SEC INR 0.96 (0.92-1.18) APTT 23.4 (23.2-32.3) SEC Sodium 139 (136-145) mEq/L Potassium 3.9 (3.5-5.0) mEq/L Chloride 104 (98-106) mEq/L Carbon Dioxide 30 (21-32) mmol/L BUN 23 H (7-18) mg/dL Creatinine 1.4 H (0.6-1.0) mg/dL Est Cr Clr Drug Dosing 25.47 mL/min Estimated GFR (MDRD) 36 L (>=60) mL/min Glucose 102 H (75-99) mg/dL Lactic Acid (0.4-2.0) mmol/L Calcium 8.3 L (8.4-10.1) mg/dL Total Bilirubin 0.5 (0.0-1.0) mg/dL AST 19 (15-37) U/L ALT 13 (12-78) U/L Alkaline Phosphatase 77 (46-116) U/L Lactate Dehydrogenase 273 H (100-190) U/L Troponin I < 0.017 (0.00-0.06) ng/mL C-Reactive Protein 0.7 (0.2-0.8) mg/dL NT-Pro-B Natriuret Pep (0-1000) pg/mL Total Protein 8.0 (6.4-8.2) g/dL Albumin 3.2 L (3.4-5.0) g/dL Influenza Type A RNA (NEGATIVE) Influenza Type B RNA (NEGATIVE) SARS-CoV-2 RNA (BRAYAN) (NEGATIVE) 02/28/21 02/28/21 02/28/21 Range/Units 04:00 04:00 04:00 WBC (4.0-11.0) 10^3/uL RBC (4.00-5.50) x10^6/uL Hgb (12.0-16.0) g/dL Hct (37.0-47.0) % MCV (83.0-97.0) fL MCH (27.0-32.0) pg MCHC (32.0-36.0) g/dL RDW Coeff of June (11.0-15.0) % Plt Count (150-400) 10^3/uL Immature Gran % (Auto) (0.0-4.9) % Neut % (Auto) (41-71) % Lymph % (Auto) (24-44) % [place] % (Auto) (0-10) % Eos % (Auto) (0-6) % Baso % (Auto) (0-1) % Neut # (Auto) (1.80-8.00) x10^3/uL Lymph # (Auto) (0.60-5.00) 10^3/uL [place] # (Auto) (0.00-1.50) 10^3/uL Eos # (Auto) (0.00-1.50) 10^3/uL Baso # (Auto) (0.00-0.50) 10^3/uL Immature Gran # (Auto) (0.00-0.49) 10^3/uL PT (9.7-12.3) SEC INR (0.92-1.18) APTT (23.2-32.3) SEC Sodium (136-145) mEq/L Potassium (3.5-5.0) mEq/L Chloride (98-106) mEq/L Carbon Dioxide (21-32) mmol/L BUN (7-18) mg/dL Creatinine (0.6-1.0) mg/dL Est Cr Clr Drug Dosing mL/min Estimated GFR (MDRD) (>=60) mL/min Glucose (75-99) mg/dL Lactic Acid 0.7 (0.4-2.0) mmol/L Calcium (8.4-10.1) mg/dL Total Bilirubin (0.0-1.0) mg/dL AST (15-37) U/L ALT (12-78) U/L Alkaline Phosphatase (46-116) U/L Lactate Dehydrogenase (100-190) U/L Troponin I (0.00-0.06) ng/mL C-Reactive Protein (0.2-0.8) mg/dL NT-Pro-B Natriuret Pep 901 (0-1000) pg/mL Total Protein (6.4-8.2) g/dL Albumin (3.4-5.0) g/dL Influenza Type A RNA Negative (NEGATIVE) Influenza Type B RNA Negative (NEGATIVE) SARS-CoV-2 RNA (BRAYAN) Negative (NEGATIVE) Meds: Medications Generic Name Dose Route Start Last Admin Trade Name Freq PRN Reason Stop Dose Admin Acetaminophen 650 mg 02/28/21 04:38 Acetaminophen 325 Mg Tab PO Q4H PRN Pain (Mild 1-3)/fever Albuterol/Ipratropium 3 ml 02/28/21 04:38 Albuterol/Ipratropium 3.0-0.5 Mg/3 Ml Neb Soln NEB Q4H PRN Shortness Of Breath/wheezing Aspirin 81 mg 02/28/21 20:00 Aspirin 81 Mg Tab.Ec PO BEDTIME PATY Atorvastatin Calcium 10 mg 02/28/21 20:00 Atorvastatin 10 Mg Tab PO BEDTIME PATY Enoxaparin Sodium 30 mg 02/28/21 05:00 Enoxaparin 30 Mg/0.3 Ml Syringe SUBCUT 02/28/21 05:01 NOW ONE Enoxaparin Sodium 30 mg 03/01/21 08:00 Enoxaparin 30 Mg/0.3 Ml Syringe SUBCUT DAILY [facility] Furosemide 40 mg 02/28/21 20:00 Furosemide 40 Mg/4 Ml Vial IVPUSH BID [facility] Sodium Chloride 500 mls @ 500 mls/hr 02/28/21 04:45 Normal Saline IV .BOLUS [facility] Levofloxacin/Dextrose 750 mg/ 150 mls @ 100 mls/hr 02/28/21 04:38 Premix IV Q24H [facility] Ibuprofen 600 mg 02/28/21 04:38 Ibuprofen 200 Mg Tab PO Q6H PRN Pain (mild 1-3) Methylprednisolone Sodium Succinate 62.5 mg 02/28/21 04:38 Methylprednisolone Sodium Succinate 125 Mg/2 Ml Sdv IVPUSH Q12H [facility] Morphine Sulfate 2 mg 02/28/21 04:38 Morphine 2 Mg/Ml Syringe IVPUSH Q2H PRN Pain (severe 7-10) Non-Formulary Medication 5 mg 02/28/21 08:00 Amlodipine [Norvasc] PO DAILY [facility] Non-Formulary Medication 4,000 units 02/28/21 08:00 Cholecalciferol (Vitamin D3) [Vitamin D3] PO DAILY [facility] Non-Formulary Medication 1 gm 02/28/21 08:00 Fish Oil/[place]-3 Fatty Acids [Fish Oil 1,000 Mg] PO DAILY [facility] Non-Formulary Medication 1,000 mg 02/28/21 08:00 Flaxseed Oil [Flaxseed Oil] PO DAILY [facility] Non-Formulary Medication 1 tab 02/28/21 08:00 Lutein/Minerals/Vit A,C & E [Ocuvite] PO DAILY [facility] Non-Formulary Medication 500 mg 02/28/21 08:00 Magnesium Oxide [Magnesium Oxide] PO DAILY [facility] Ondansetron HCl 4 mg 02/28/21 04:38 Ondansetron 4 Mg/2 Ml Sdv IV Q6H PRN Nausea/Vomiting Discontinued Medications Generic Name Dose Route Start Last Admin Trade Name Freq PRN Reason Stop Dose Admin Albuterol/Ipratropium 3 ml 02/28/21 04:06 02/28/21 04:20 Albuterol/Ipratropium 3.0-0.5 Mg/3 Ml Neb Soln NEB 02/28/21 04:07 3 ml ONETIME ONE Administration Furosemide 40 mg 02/28/21 04:06 02/28/21 04:20 Furosemide 40 Mg/4 Ml Vial IVPUSH 02/28/21 04:07 40 mg ONETIME ONE Administration - Radiology Interpretation Free Text/Narrative:: CXR: Right middle lobe infiltrate. No pulmonary edema on CXR. No pneumothorax. Right foot: No fx seen Departure - Departure Time of Disposition: 04:17 Disposition: Admitted As Inpatient 65 Condition: Serious Clinical Impression: Pneumonia, Hypoxia Acute on chronic congestive heart failure Qualifiers: Heart failure type: unspecified Qualified Code(s): I50.9 - Heart failure, unspecified Dyspnea Qualifiers: Dyspnea type: shortness of breath Qualified Code(s): R06.02 - Shortness of breath - Discharge Information *PRESCRIPTION DRUG MONITORING PROGRAM REVIEWED*: Not Applicable *COPY OF PRESCRIPTION DRUG MONITORING REPORT IN PATIENT DAVE: Not Applicable Sepsis Event Note (ED) - Focused Exam Vital Signs: Vital Signs Temp Pulse Resp BP Pulse Ox 02/28/21 03:30 99.3 F 90 22 H 129/59 L 73 L - My Orders Last 24 Hours: My Active Orders 02/28/21 03:43 Chest 2V [CR] Stat EKG 12 Lead [EK] Stat 02/28/21 04:00 CULTURE BLOOD [BC] Stat 02/28/21 04:06 RT Aerosol Therapy [RC] ASDIRECTED 02/28/21 04:18 Foot Comp Min 3V Rt [CR] Stat 02/28/21 04:19 Resuscitation Status Routine 02/28/21 04:20 CULTURE BLOOD [BC] Stat 02/28/21 04:38 Acetaminophen [TylenoL] 650 mg PO Q4H PRN Albuterol/Ipratropium [DuoNeb 3.0-0.5 MG/3 ML] 3 ml NEB Q4H PRN Ibuprofen [Motrin] 600 mg PO Q6H PRN Levofloxacin/Dextrose 5%-Water [Levaquin in D5W 750 MG/150 ML] 750 mg Premix Bag 1 bag IV Q24H Morphine 2 mg IVPUSH Q2H PRN Ondansetron [Zofran] 4 mg IV Q6H PRN methylPREDNISolone Sod Succ [Solu-MEDROL] 62.5 mg IVPUSH Q12H 02/28/21 04:38 Patient Status [ADT] Routine Antiembolic Devices [RC] PER UNIT ROUTINE Cardiac Monitoring [RC] CONTINUOUS Height and Weight [RC] DAILY Height and Weight [RC] UPON Intake and Output [RC] QSHIFT Notify Provider Vital Signs [RC] ASDIRECTED Oxygen Therapy [RC] PRN Pulse Oximetry [RC] PRN RT Aerosol Therapy [RC] ASDIRECTED Up With Assistance [RC] ASDIRECTED Up to Chair [RC] ASDIRECTED VTE/DVT Education [RC] PER UNIT ROUTINE Vital Signs [RC] Q4H Antiembolic Hose [OM.PC] Per Unit Routine 02/28/21 05:00 Enoxaparin [Lovenox] 30 mg SUBCUT NOW ONE 02/28/21 Breakfast Heart Healthy Diet [DIET] Cholecalciferol (Vitamin D3) [Vitamin D3] 4,000 units PO DAILY Fish Oil/[place]-3 Fatty Acids [Fish Oil 1,000 MG] 1 gm PO DAILY Flaxseed Oil [Flaxseed Oil] 1,000 mg PO DAILY Lutein/Minerals/Vit A,C & E [Ocuvite] 1 tab PO DAILY Magnesium Oxide [Magnesium Oxide] 500 mg PO DAILY amLODIPine [Norvasc] 5 mg PO DAILY 02/28/21 20:00 Aspirin [Halfprin] 81 mg PO BEDTIME Furosemide [Lasix] 40 mg IVPUSH BID atorvaSTATin [Lipitor] 10 mg PO BEDTIME 03/01/21 05:00 BASIC METABOLIC PANEL,BMP [CHEM] DAILY C-REACTIVE PROTEIN [CHEM] DAILY CBC WITH AUTO DIFF [HEME] DAILY PRO B-TYPE NATRIUR PEPT,BNPPRO [CHEM] DAILY 03/02/21 05:00 BASIC METABOLIC PANEL,BMP [CHEM] DAILY C-REACTIVE PROTEIN [CHEM] DAILY CBC WITH AUTO DIFF [HEME] DAILY PRO B-TYPE NATRIUR PEPT,BNPPRO [CHEM] DAILY 03/03/21 05:00 BASIC METABOLIC PANEL,BMP [CHEM] DAILY C-REACTIVE PROTEIN [CHEM] DAILY CBC WITH AUTO DIFF [HEME] DAILY PRO B-TYPE NATRIUR PEPT,BNPPRO [CHEM] DAILY 03/04/21 05:00 BASIC METABOLIC PANEL,BMP [CHEM] DAILY C-REACTIVE PROTEIN [CHEM] DAILY CBC WITH AUTO DIFF [HEME] DAILY PRO B-TYPE NATRIUR PEPT,BNPPRO [CHEM] DAILY - Assessment/Plan Last 24 Hours: My Active Orders 02/28/21 03:43 Chest 2V [CR] Stat EKG 12 Lead [EK] Stat 02/28/21 04:00 CULTURE BLOOD [BC] Stat 02/28/21 04:06 RT Aerosol Therapy [RC] ASDIRECTED 02/28/21 04:18 Foot Comp Min 3V Rt [CR] Stat 02/28/21 04:19 Resuscitation Status Routine 02/28/21 04:20 CULTURE BLOOD [BC] Stat 02/28/21 04:38 Acetaminophen [TylenoL] 650 mg PO Q4H PRN Albuterol/Ipratropium [DuoNeb 3.0-0.5 MG/3 ML] 3 ml NEB Q4H PRN Ibuprofen [Motrin] 600 mg PO Q6H PRN Levofloxacin/Dextrose 5%-Water [Levaquin in D5W 750 MG/150 ML] 750 mg Premix Bag 1 bag IV Q24H Morphine 2 mg IVPUSH Q2H PRN Ondansetron [Zofran] 4 mg IV Q6H PRN methylPREDNISolone Sod Succ [Solu-MEDROL] 62.5 mg IVPUSH Q12H 02/28/21 04:38 Patient Status [ADT] Routine Antiembolic Devices [RC] PER UNIT ROUTINE Cardiac Monitoring [RC] CONTINUOUS Height and Weight [RC] DAILY Height and Weight [RC] UPON Intake and Output [RC] QSHIFT Notify Provider Vital Signs [RC] ASDIRECTED Oxygen Therapy [RC] PRN Pulse Oximetry [RC] PRN RT Aerosol Therapy [RC] ASDIRECTED Up With Assistance [RC] ASDIRECTED Up to Chair [RC] ASDIRECTED VTE/DVT Education [RC] PER UNIT ROUTINE Vital Signs [RC] Q4H Antiembolic Hose [OM.PC] Per Unit Routine 02/28/21 05:00 Enoxaparin [Lovenox] 30 mg SUBCUT NOW ONE 02/28/21 Breakfast Heart Healthy Diet [DIET] Cholecalciferol (Vitamin D3) [Vitamin D3] 4,000 units PO DAILY Fish Oil/[place]-3 Fatty Acids [Fish Oil 1,000 MG] 1 gm PO DAILY Flaxseed Oil [Flaxseed Oil] 1,000 mg PO DAILY Lutein/Minerals/Vit A,C & E [Ocuvite] 1 tab PO DAILY Magnesium Oxide [Magnesium Oxide] 500 mg PO DAILY amLODIPine [Norvasc] 5 mg PO DAILY 02/28/21 20:00 Aspirin [Halfprin] 81 mg PO BEDTIME Furosemide [Lasix] 40 mg IVPUSH BID atorvaSTATin [Lipitor] 10 mg PO BEDTIME 03/01/21 05:00 BASIC METABOLIC PANEL,BMP [CHEM] DAILY C-REACTIVE PROTEIN [CHEM] DAILY CBC WITH AUTO DIFF [HEME] DAILY PRO B-TYPE NATRIUR PEPT,BNPPRO [CHEM] DAILY 03/02/21 05:00 BASIC METABOLIC PANEL,BMP [CHEM] DAILY C-REACTIVE PROTEIN [CHEM] DAILY CBC WITH AUTO DIFF [HEME] DAILY PRO B-TYPE NATRIUR PEPT,BNPPRO [CHEM] DAILY 03/03/21 05:00 BASIC METABOLIC PANEL,BMP [CHEM] DAILY C-REACTIVE PROTEIN [CHEM] DAILY CBC WITH AUTO DIFF [HEME] DAILY PRO B-TYPE NATRIUR PEPT,BNPPRO [CHEM] DAILY 03/04/21 05:00 BASIC METABOLIC PANEL,BMP [CHEM] DAILY C-REACTIVE PROTEIN [CHEM] DAILY CBC WITH AUTO DIFF [HEME] DAILY PRO B-TYPE NATRIUR PEPT,BNPPRO [CHEM] DAILY Plan: PLEASE SEE RN NOTE FOR PFSH PLEASE USE ER H&P ADMIT H&P
[2021-02-28] MEDS ORDERED: Furosemide 40 MG/4 ML VIAL IVPUSH ONE (04:06)
[2021-02-28] MEDS ORDERED: Albuterol/Ipratropium 3.0-0.5 MG/3 ML Neb Soln NEB ONE (04:06)
[2021-02-28 04:25] LABS: CHLORIDE,CL 104 mEq/L (98-106); SODIUM,NA 139 mEq/L (136-145)
[2021-02-28 04:32] LABS: PTT,PARTIAL THROMBOPLSTIN TIME 23.4 SEC (23.2-32.3)
[2021-02-28] MEDS ORDERED: Acetaminophen 325 MG Tab PO PRN (04:38)
[2021-02-28] MEDS ORDERED: Albuterol/Ipratropium 3.0-0.5 MG/3 ML Neb Soln NEB PRN ×2 (04:38→09:43)
[2021-02-28] MEDS ORDERED: Morphine 2 MG/ML SYRINGE IVPUSH PRN (04:38)
[2021-02-28] MEDS ORDERED: Ondansetron 4 MG/2 ML SDV IV PRN (04:38)
[2021-02-28] MEDS ORDERED: Ibuprofen 200 MG Tab PO PRN (04:38)
[2021-02-28 04:40] LABS: CORONAVIRUS COVID-19 NAA NEGATIVE (NEGATIVE)
[2021-02-28] MEDS ORDERED: Sodium Chloride 0.9% 500 ML IV SCH (04:45)
[2021-02-28] MEDS ORDERED: methylPREDNISolone Sodium Succinate 125 MG/2 ML SDV IVPUSH ONE (05:00)
[2021-02-28] MEDS ORDERED: Enoxaparin 30 MG/0.3 ML Syringe SUBCUT ONE (05:00)
[2021-02-28] MEDS ORDERED: Levofloxacin/Dextrose 5%-Water 750 MG in Premix Bag 1 BAG IV ONE (05:00)
[2021-02-28] MEDS: Cholecalciferol (Vitamin D3) 25 MCG Tab PO SCH (07:53)
[2021-02-28] MEDS: Beta-Carotene (Vitamin A) w/Vitamin C & E plus Minerals Tab PO SCH (07:54)
[2021-02-28] MEDS: amLODIPine 2.5 MG Tab PO SCH (07:54)
[2021-02-28] MEDS: guaiFENesin 200 MG Tab PO SCH ×3 (07:54→19:34)
[2021-02-28] MEDS ORDERED: FLAXSEED OIL 1000 MG PO SCH ×2 (08:00)
[2021-02-28] MEDS ORDERED: Non-Formulary Medication 1 Each (Fish Oil/Omega-3 Fatty Acids [Fish Oil 1,000 Mg] 1 GM Cap PO SCH ×2 (08:00)
[2021-02-28] MEDS: Albuterol/Ipratropium 3.0-0.5 MG/3 ML Neb Soln NEB SCH ×3 (11:51→19:34)
[2021-02-28] MEDS: atorvaSTATin 10 MG Tab PO SCH (19:35)
[2021-02-28] MEDS: Aspirin 81 MG Tab.EC PO SCH (19:35)
[2021-02-28] MEDS: Furosemide 40 MG/4 ML VIAL IVPUSH SCH (19:37)
[2021-02-28] MEDS: methylPREDNISolone Sodium Succinate 125 MG/2 ML SDV IVPUSH SCH (20:14)
[2021-03-01] MEDS: Furosemide 40 MG/4 ML VIAL IVPUSH SCH (07:31)
[2021-03-01] MEDS: guaiFENesin 200 MG Tab PO SCH ×3 (07:31→19:55)
[2021-03-01] MEDS: Beta-Carotene (Vitamin A) w/Vitamin C & E plus Minerals Tab PO SCH (07:31)
[2021-03-01] MEDS: Cholecalciferol (Vitamin D3) 25 MCG Tab PO SCH (07:31)
[2021-03-01] MEDS: Albuterol/Ipratropium 3.0-0.5 MG/3 ML Neb Soln NEB SCH ×4 (07:31→19:55)
[2021-03-01] MEDS: Enoxaparin 30 MG/0.3 ML Syringe SUBCUT SCH (07:32)
[2021-03-01] MEDS: amLODIPine 2.5 MG Tab PO SCH (07:32)
[2021-03-01] MEDS: Levofloxacin/Dextrose 5%-Water 250 MG in Premix Bag 1 BAG IV SCH (07:33)
--- NOTE | 2021-03-01 07:42 | PCM.PN ---
- General Info Date of Service: 02/28/21 Subjective Update: Jaqueline is an 86 yo female who was admitted to the hospital early this morning with right middle lobe pneumonia. She admits since Saturday symptoms gradually got worse. She has been dealing with a nonproductive cough for the last 5 days. Upon arrival to the ED she was extremely short of breath. Upon arrival to the ED oxygen saturations were in the 70's. Jaqueline state she is feeling a lot better this afternoon. States she doesn't feel short of breath, especially with oxygen on. Denies any fevers. Overall, feels gradual improvement. - Review of Systems General: Reports: Fatigue HEENT: Reports: No Symptoms Pulmonary: Reports: Shortness of Breath, Cough Cardiovascular: Reports: No Symptoms Gastrointestinal: Reports: No Symptoms Genitourinary: Reports: No Symptoms Musculoskeletal: Reports: No Symptoms Skin: Reports: No Symptoms Neurological: Reports: No Symptoms Psychiatric: Reports: No Symptoms - Patient Data Vitals - Most Recent: Last Vital Signs Temp 97.1 F 03/01/21 04:00 Pulse 82 03/01/21 04:00 Resp 18 03/01/21 04:00 BP 139/59 L 03/01/21 07:32 Pulse Ox 96 03/01/21 04:00 Weight - Most Recent: 216 lb 14.958 oz I&O - Last 24 Hours: Intake & Output 02/28/21 03/01/21 03/01/21 22:59 06:59 14:59 Intake Total 880 400 Output Total 1000 800 Balance -120 -400 [place] Results Last 24 Hours: Microbiology 02/28/21 04:20 Aerobic Blood Culture - Preliminary Blood NO GROWTH AFTER 1 DAY Anaerobic Blood Culture - Preliminary NO GROWTH AFTER 1 DAY 02/28/21 04:00 Aerobic Blood Culture - Preliminary Blood NO GROWTH AFTER 1 DAY Anaerobic Blood Culture - Preliminary NO GROWTH AFTER 1 DAY Med Orders - Current: Current Medications Acetaminophen (Acetaminophen 325 Mg Tab) 650 mg PO Q4H PRN PRN Reason: Pain (Mild 1-3)/fever Albuterol/Ipratropium (Albuterol/Ipratropium 3.0-0.5 Mg/3 Ml Neb Soln) 3 ml NEB QIDRT [facility] Last Admin: 03/01/21 07:31 Dose: 3 ml Documented by: Albuterol/Ipratropium (Albuterol/Ipratropium 3.0-0.5 Mg/3 Ml Neb Soln) 3 ml NEB Q4H PRN PRN Reason: Dyspnea Amlodipine Besylate (Amlodipine 2.5 Mg Tab) 5 mg PO DAILY [facility] Last Admin: 03/01/21 07:32 Dose: 5 mg Documented by: Aspirin (Aspirin 81 Mg Tab.Ec) 81 mg PO BEDTIME [facility] Last Admin: 02/28/21 19:35 Dose: 81 mg Documented by: Atorvastatin Calcium (Atorvastatin 10 Mg Tab) 10 mg PO BEDTIME [facility] Last Admin: 02/28/21 19:35 Dose: 10 mg Documented by: Cholecalciferol (Cholecalciferol (Vitamin D3) 25 Mcg Tab) 100 mcg PO DAILY [facility] Last Admin: 03/01/21 07:31 Dose: 100 mcg Documented by: Enoxaparin Sodium (Enoxaparin 30 Mg/0.3 Ml Syringe) 30 mg SUBCUT DAILY [facility] Last Admin: 03/01/21 07:32 Dose: 30 mg Documented by: Furosemide (Furosemide 40 Mg/4 Ml Vial) 40 mg IVPUSH BID [facility] Last Admin: 03/01/21 07:31 Dose: 40 mg Documented by: Guaifenesin (Guaifenesin 200 Mg Tab) 200 mg PO TID [facility] Last Admin: 03/01/21 07:31 Dose: 200 mg Documented by: Sodium Chloride (Normal Saline) 500 mls @ 500 mls/hr IV .BOLUS [facility] Last Admin: 02/28/21 05:44 Dose: 500 mls/hr Documented by: Levofloxacin/Dextrose 250 mg/ (Premix) 50 mls @ 50 mls/hr IV Q24H [facility] Last Admin: 03/01/21 07:33 Dose: 50 mls/hr Documented by: Ibuprofen (Ibuprofen 200 Mg Tab) 600 mg PO Q6H PRN PRN Reason: Pain (mild 1-3) Magnesium Oxide (Magnesium Oxide 250 Mg Tab) 500 mg PO DAILY [facility] Last Admin: 03/01/21 07:31 Dose: 500 mg Documented by: Methylprednisolone Sodium Succinate (Methylprednisolone Sodium Succinate 125 Mg/2 Ml Sdv) 62.5 mg IVPUSH Q12H [facility] Last Admin: 02/28/21 20:14 Dose: 62.5 mg Documented by: Morphine Sulfate (Morphine 2 Mg/Ml Syringe) 2 mg IVPUSH Q2H PRN PRN Reason: Pain (severe 7-10) Multivitamins/Minerals (Beta-Carotene (Vitamin A) W/Vitamin C & E Plus Minerals Tab) 1 tab PO DAILY [facility] Last Admin: 03/01/21 07:31 Dose: 1 tab Documented by: Ondansetron HCl (Ondansetron 4 Mg/2 Ml Sdv) 4 mg IV Q6H PRN PRN Reason: Nausea/Vomiting Discontinued Medications Albuterol/Ipratropium (Albuterol/Ipratropium 3.0-0.5 Mg/3 Ml Neb Soln) 3 ml NEB ONETIME ONE Stop: 02/28/21 04:07 Last Admin: 02/28/21 04:20 Dose: 3 ml Documented by: Albuterol/Ipratropium (Albuterol/Ipratropium 3.0-0.5 Mg/3 Ml Neb Soln) 3 ml NEB Q4H PRN PRN Reason: Shortness Of Breath/wheezing Last Admin: 02/28/21 07:55 Dose: 3 ml Documented by: Enoxaparin Sodium (Enoxaparin 30 Mg/0.3 Ml Syringe) 30 mg SUBCUT NOW ONE Stop: 02/28/21 05:01 Last Admin: 02/28/21 05:43 Dose: 30 mg Documented by: Furosemide (Furosemide 40 Mg/4 Ml Vial) 40 mg IVPUSH ONETIME ONE Stop: 02/28/21 04:07 Last Admin: 02/28/21 04:20 Dose: 40 mg Documented by: Levofloxacin/Dextrose 750 mg/ (Premix) 150 mls @ 100 mls/hr IV Q48H [facility] Levofloxacin/Dextrose 750 mg/ (Premix) 150 mls @ 100 mls/hr IV NOW ONE Stop: 02/28/21 06:29 Last Admin: 02/28/21 05:43 Dose: 100 mls/hr Documented by: Methylprednisolone Sodium Succinate (Methylprednisolone Sodium Succinate 125 Mg/2 Ml Sdv) 62.5 mg IVPUSH NOW ONE Stop: 02/28/21 05:01 Last Admin: 02/28/21 05:43 Dose: 62.5 mg Documented by: Non-Formulary Medication (Fish Oil/[place]-3 Fatty Acids [Fish Oil 1,000 Mg]) 1 gm PO DAILY [facility] Non-Formulary Medication (Flaxseed Oil [Flaxseed Oil]) 1,000 mg PO DAILY [facility] Non-Formulary Medication (Fish Oil/[place]-3 Fatty Acids [Fish Oil 1,000 Mg]) 1 gm PO DAILY [facility] Last Admin: 02/28/21 17:30 Dose: Not Given Documented by: Non-Formulary Medication (Flaxseed Oil [Flaxseed Oil]) 1,000 mg PO DAILY [facility] Last Admin: 02/28/21 17:30 Dose: Not Given Documented by: - Exam General: Alert, Oriented, Cooperative, No Acute Distress Lungs: Normal Respiratory Effort, Rhonchi Cardiovascular: Regular Rate, Regular Rhythm, No Murmurs GI/Abdominal Exam: Normal Bowel Sounds, Soft, Non-Tender Extremities: Normal Inspection, Pedal Edema Skin: Warm, Dry, Intact Psy/Mental Status: Alert, Normal Affect, Normal Mood - Patient Data Result Diagrams: 02/28/21 04:00 02/28/21 04:00 [place] Results Last 24 hrs: Microbiology 02/28/21 04:20 Aerobic Blood Culture - Preliminary Blood NO GROWTH AFTER 1 DAY Anaerobic Blood Culture - Preliminary NO GROWTH AFTER 1 DAY 02/28/21 04:00 Aerobic Blood Culture - Preliminary Blood NO GROWTH AFTER 1 DAY Anaerobic Blood Culture - Preliminary NO GROWTH AFTER 1 DAY Sepsis Event Note - Evaluation Sepsis Screening Result: No Definite Risk - Focused Exam Vital Signs: Vital Signs Temp Pulse Resp BP BP Pulse Ox 03/01/21 07:32 139/59 L 03/01/21 04:00 97.1 F 82 18 143/76 H 96 03/01/21 00:00 98.8 F 90 20 113/59 L 94 L 02/28/21 20:00 97.7 F 89 20 156/69 H 94 L - Problem List & Annotations (1) Right middle lobe pneumonia SNOMED Code(s): 061261573 Code(s): J18.9 - PNEUMONIA, UNSPECIFIED ORGANISM Status: Acute Current Visit: Yes Qualifiers: Pneumonia type: due to unspecified organism Qualified Code(s): J18.9 - Pneumonia, unspecified organism - Problem List Review Problem List Initiated/Reviewed/Updated: Yes - My Orders Last 24 Hours: My Active Orders 02/28/21 09:43 Albuterol/Ipratropium [DuoNeb 3.0-0.5 MG/3 ML] 3 ml NEB Q4H PRN 02/28/21 12:00 Albuterol/Ipratropium [DuoNeb 3.0-0.5 MG/3 ML] 3 ml NEB QIDRT 03/01/21 08:00 Levofloxacin/Dextrose 5%-Water [Levaquin in D5W 250 MG/50 ML] 250 mg Premix Bag 1 bag IV Q24H - Plan Plan:: Patient appears to be doing well today. Discussed oxygen and requiring oxygen via nasal canula. Will continue with IV antibiotics and oxygen therapy. Plan to wean off prior to discharge. She verbalized understanding. Will change dose of Levaquin secondary to creatinine clearance. Repeat labs in am.
[2021-03-01] MEDS: methylPREDNISolone Sodium Succinate 125 MG/2 ML SDV IVPUSH SCH ×2 (09:04→21:22)
--- NOTE | 2021-03-01 11:08 | PN ---
DATE: 03/01/2021 S: Jaqueline is doing better. She feels markedly less short of breath, still requiring oxygen, but is down to 2 L and we are going to continue to wean. She has minimal cough, no productive sputum. Vital signs are reviewed over the last 48 hours and she has remained afebrile. O: GENERAL: The patient is pleasant, alert, and cooperative. Speaks in full sentences without difficulty. HEENT: Benign. NECK: Neck veins are nondistended. LUNGS: She continues to have some very mild crackles in the right mid and base, but otherwise good air movement throughout. CARDIAC: Tones are regular. ABDOMEN: Soft. EXTREMITIES: No peripheral edema is seen. ASSESSMENT: 1. COMMUNITY-ACQUIRED PNEUMONIA. 2. HYPERTENSION, CONTROLLED. 3. HYPERLIPIDEMIA, TREATED. P: We will continue IV Levaquin for now. Try to wean off O2 and hopefully by morning she is appropriate for discharge. We will repeat a chest x-ray tomorrow morning as well. We will stop all of her routine labs as they are stable. BERTIN/SAMSON /[id number]
[2021-03-01] MEDS: Furosemide 20 MG Tab PO SCH (12:41)
[2021-03-01] MEDS: Aspirin 81 MG Tab.EC PO SCH (19:55)
[2021-03-01] MEDS: atorvaSTATin 10 MG Tab PO SCH (19:55)
[2021-03-02] MEDS: amLODIPine 2.5 MG Tab PO SCH (07:59)
[2021-03-02] MEDS: Cholecalciferol (Vitamin D3) 25 MCG Tab PO SCH (07:59)
[2021-03-02] MEDS: Furosemide 40 MG Tab PO SCH (07:59)
[2021-03-02] MEDS: Beta-Carotene (Vitamin A) w/Vitamin C & E plus Minerals Tab PO SCH (08:00)
[2021-03-02] MEDS: Albuterol/Ipratropium 3.0-0.5 MG/3 ML Neb Soln NEB SCH ×4 (08:00→19:30)
[2021-03-02] MEDS: Levofloxacin/Dextrose 5%-Water 250 MG in Premix Bag 1 BAG IV SCH (08:00)
[2021-03-02] MEDS: Enoxaparin 30 MG/0.3 ML Syringe SUBCUT SCH (08:00)
[2021-03-02] MEDS: guaiFENesin 200 MG Tab PO SCH ×3 (08:00→19:30)
[2021-03-02] MEDS ORDERED: Levofloxacin/Dextrose 5%-Water 750 MG in Premix Bag 1 BAG IV SCH (09:00)
[2021-03-02] MEDS: methylPREDNISolone Sodium Succinate 125 MG/2 ML SDV IVPUSH SCH ×2 (10:02→20:43)
[2021-03-02] MEDS: Furosemide 20 MG Tab PO SCH (11:34)
--- NOTE | 2021-03-02 11:59 | PN ---
DATE: 03/02/2021 S: Jaqueline had a tough night. She was doing a lot of coughing. Never really had much issues with her sats and has been afebrile, but she did get quite played out by that. This morning, she is sitting up, breathing fine. Denies as much cough this morning, but does feel tired. She has not had any productive sputum with this. O: VITAL SIGNS: Reviewed. She has remained afebrile. She is saturating at 93% to 94% on 2 L. GENERAL: She is pleasant and cooperative. HEENT: Grossly benign. NECK: Neck veins are nondistended. LUNGS: Lung sounds appear to be relatively clear, though the right middle and lower lobe regions have less rales and overall pretty improved air movement. ASSESSMENT: 1. COMMUNITY-ACQUIRED PNEUMONIA. 2. HYPERTENSION. 3. HYPERLIPIDEMIA. 4. DISTANT HISTORY OF CORONARY ARTERY DISEASE. P: We will continue all current cares. We will put her on some Mucinex to help with some of her congestion and cough. Otherwise, no changes. Expect her to just continue to improve. BERTIN/SAMSON /[id number]
[2021-03-02] MEDS ORDERED: guaiFENesin 200 MG Tab PO SCH (14:00)
[2021-03-02] MEDS ORDERED: Codeine/Promethazine 10-6.25 MG/5 ML Syrup 5 ML UD Cup PO PRN (16:13)
[2021-03-02] MEDS: Aspirin 81 MG Tab.EC PO SCH (19:30)
[2021-03-02] MEDS: atorvaSTATin 10 MG Tab PO SCH (19:30)
[2021-03-03] MEDS: Enoxaparin 30 MG/0.3 ML Syringe SUBCUT SCH (08:24)
[2021-03-03] MEDS: Albuterol/Ipratropium 3.0-0.5 MG/3 ML Neb Soln NEB SCH (08:24)
[2021-03-03] MEDS: Furosemide 40 MG Tab PO SCH (08:25)
[2021-03-03] MEDS: Beta-Carotene (Vitamin A) w/Vitamin C & E plus Minerals Tab PO SCH (08:25)
[2021-03-03] MEDS: amLODIPine 2.5 MG Tab PO SCH (08:25)
[2021-03-03] MEDS: guaiFENesin 200 MG Tab PO SCH (08:26)
[2021-03-03] MEDS: Cholecalciferol (Vitamin D3) 25 MCG Tab PO SCH (08:26)
[2021-03-03] MEDS: Levofloxacin/Dextrose 5%-Water 250 MG in Premix Bag 1 BAG IV SCH (08:26)
[2021-03-03 08:27] VITALS: BP 143/66
[2021-03-03] MEDS: methylPREDNISolone Sodium Succinate 125 MG/2 ML SDV IVPUSH SCH (08:27)
--- NOTE | 2021-03-03 11:06 | DISCH ---
ADMISSION DIAGNOSES: 1. Right middle lobe pneumonia. 2. Hypertension. 3. Hyperlipidemia. 4. History of coronary artery disease. DISCHARGE DIAGNOSIS: 1. RIGHT MIDDLE LOBE PNEUMONIA. 2. HYPERTENSION. 3. HYPERLIPIDEMIA. 4. HISTORY OF CORONARY ARTERY DISEASE. HISTORY: The patient was admitted early in the morning on 02/28/2021 for 4 or 5 day history of increasing cough and shortness of breath. She was worked up and evaluated, found to have a right middle lobe pneumonia verified on x-ray. She was admitted and started on IV antibiotics. Influenza and COVID testing were negative. HOSPITAL COURSE: The patient was admitted, started on IV antibiotics in the form of Levaquin 250 mg daily as well as supplemental oxygen. She was given p.r.n. nebulizers and started on guaifenesin. Over the course of her 3-day stay, she had a remarkable improvement in her overall symptoms. She never spiked any temp. She had no audible wheezing. For the most part, she ran an unremarkable course. Within about 24 to 36 hours, she was weaned off O2 and she was saturating at 95% on room air. Still has an occasional cough, but for the most part, denies shortness of breath or chest pain. Her lab work has remained fine and clinically she appears well to go home. She will continue on a 7-day course of outpatient Levaquin. She is having no wheezing over the last couple of days and I do not feel she needs to go home on any nebulizer treatment. She will continue with Mucinex for her cough and sputum and we will follow her up in the clinic in 2 weeks for a recheck. COMPLICATIONS: During her stay were none. CONSULTATIONS: None. DISPOSITION: Discharged home. BERTIN/SAMSON /[id number]
[2021-03-03 11:53] VITALS: PULSE 95
== END 2021-03-03 11:03 | disposition home or self-care (01) | DRG 195 ==
LOC: CC.ED 03:14 → CC.MS 04:18 → UNDOADMOB 04:30 → UNDOADMIN 04:30 → CC.MS 04:30
PROVIDERS: ADMIT Nurse Practitioner; ATTEND Family Medicine
DX: J18.9 Pneumonia, unspecified organism (principal); E78.5 Hyperlipidemia, unspecified; R09.02 Hypoxemia; I50.9 Heart failure, unspecified; R06.02 Shortness of breath; I25.10 Atherosclerotic heart disease of native coronary artery without angina pectoris; H54.7 Unspecified visual loss; I11.0 Hypertensive heart disease with heart failure; Z95.1 Presence of aortocoronary bypass graft; Z98.49 Cataract extraction status, unspecified eye; Z90.49 Acquired absence of other specified parts of digestive tract; Z88.7 Allergy status to serum and vaccine; Z88.1 Allergy status to other antibiotic agents; Z91.040 Latex allergy status; I25.2 Old myocardial infarction; M19.90 Unspecified osteoarthritis, unspecified site; Z79.82 Long term (current) use of aspirin; Z79.899 Other long term (current) drug therapy; Z20.822 Contact with and (suspected) exposure to COVID-19
CPT/HCPCS: 0240U; 36415; 71046; 73630-RT; 80048; 80053; 83605; 83615; 83880; 84484; 85025; 85610; 85730; 86140; 87040; 93005; 93010; 94640; 99285-25; A9270-GY; J1650; J1940; J1956; J2930; J7040; J7620-GY

== ENCOUNTER 2021-03-06 15:10 | Emergency (ER) | payer MEDICARE, BC ==
[2021-03-06 15:41] VITALS: BP 146/68; PULSE 82
[2021-03-06 16:01] LABS: CHLORIDE,CL 102 mEq/L (98-106); SODIUM,NA 142 mEq/L (136-145)
--- NOTE | 2021-03-06 16:25 | EDM.PDOC ---
ED HPI GENERAL MEDICAL PROBLEM - General Chief Complaint: General Stated Complaint: SOB Time Seen by Provider: 03/06/21 15:40 Source of Information: Reports: Patient History Limitations: Reports: No Limitations - History of Present Illness INITIAL COMMENTS - FREE TEXT/NARRATIVE: Jaqueline is a pleasant 86 year old female who presents to the ED with ongoing cough, shortness of breath and a near syncopal episode. She reports she was picking up her nebulizer prescription that was just called in from her from Dr. Benitez at the pharmacy. Reports she started coughing and "almost passed out." She reports she then felt like she was struggling to breathe. They did give her a nebulizer treatment in the pharmacy and then she was brought here. She was recently hospitalized for pneumonitis. Discharged from our facility Saturday. She has continued taking her Levaquin as directed. Reports she continues to have a nonproductive cough. Reports it feels like phlegm is just stuck. Denies any f ever. Reports chills, sinus congestion and drainage. Currently denies any chest pain or shortness of breath. Location: Reports: Chest Associated Symptoms: Reports: Cough, Fever/Chills (chills, no fever), Shortness of Breath, Syncope (near syncopal episode). Denies: Confusion, Chest Pain, cough w sputum, Diaphoresis, Headaches, Loss of Appetite, Malaise, Nausea/Vomiting, Rash, Seizure, Weakness Treatments [employer]NA[employer] FRONT [employer]: Reports: Other Medication(s) (LEvaquin, Duoneb) - Related Data Allergies Allergy/AdvReac Type Severity Reaction Status Date / Time latex Allergy Itching Verified 03/06/21 15:16 Tetanus Vaccines and Toxoid Allergy Swelling Verified 03/06/21 15:16 [Tetanus Vaccines & Toxoid] ciprofloxacin [From Cipro] AdvReac Nausea Verified 03/06/21 15:16 Nylon Allergy Itching Uncoded 03/06/21 15:16 Home Meds: Home Meds Aspirin [Halfprin] 81 mg PO BEDTIME 06/14/14 [History] Cholecalciferol (Vitamin D3) [Vitamin D3] 4,000 units PO DAILY 06/14/14 [History] atorvaSTATin Calcium [Atorvastatin Calcium] 10 mg PO BEDTIME 06/14/14 [History] Fish Oil/[place]-3 Fatty Acids [Fish Oil 1,000 MG] 1 gm PO DAILY 02/27/18 [History] Flaxseed Oil 1,000 mg PO DAILY 02/27/18 [History] Lutein/Minerals/Vit A,C & E [Ocuvite] 1 tab PO DAILY 02/27/18 [History] Magnesium Oxide 500 mg PO DAILY 02/27/18 [History] Furosemide 20 mg PO WITHLUNCH 02/28/21 [History] Furosemide 40 mg PO QAM 02/28/21 [History] amLODIPine [Norvasc] 5 mg PO DAILY 02/28/21 [History] Acetaminophen [Tylenol] 650 mg PO Q4H PRN tablet 03/03/21 [Rx] Levofloxacin [Levaquin] 500 mg PO DAILY #7 tablet 03/03/21 [Rx] Levofloxacin 500 mg PO DAILY 03/06/21 [History] predniSONE [Prednisone] 20 mg PO DAILY 3 Days #3 tablet 03/06/21 [Rx] Past Medical History HEENT History: Reports: Impaired Vision Cardiovascular History: Reports: Bypass, Hypertension, [place] Respiratory History: Reports: Pneumonia, Recurrent Gastrointestinal History: Reports: Other (See Below) Other Gastrointestinal History: Diverticulitis Musculoskeletal History: Reports: Arthritis - Past Surgical History HEENT Surgical History: Reports: Cataract Surgery, Tonsillectomy Cardiovascular Surgical History: Reports: None GI Surgical History: Reports: Appendectomy Social & Family History - Family History Family Medical History: No Pertinent Family History - Tobacco Use Tobacco Use Status *Q: Never Tobacco User - Caffeine Use Caffeine Use: Reports: Coffee ED ROS GENERAL - Review of Systems Review Of Systems: Comprehensive ROS is negative, except as noted in HPI. ED EXAM, GENERAL - Physical Exam Exam: See Below Exam Limited By: No Limitations General Appearance: Alert, WD/WN, No Apparent Distress Eye Exam: Bilateral Eye: EOMI, Normal Fundi, Normal Inspection, PERRL Nose: Nasal Swelling, Nasal Drainage, Clear Rhinorrhea Head: Atraumatic, Normocephalic Neck: Normal Inspection, Supple, Non-Tender, Full Range of Motion Respiratory/Chest: No Respiratory Distress, No Accessory Muscle Use, Chest Non-Tender, Decreased Breath Sounds, Rhonchi (right middle and lower lobe), Wheezing (ins & exp right middle and lower lobe) Cardiovascular: Normal Peripheral Pulses, Regular Rate, Rhythm, No Edema GI/Abdominal: Normal Bowel Sounds, Soft, Non-Tender, No Organomegaly, No Distention, No Abnormal Bruit, No Mass Neurological: Alert, Oriented, CN II-XII Intact, Normal Cognition, Normal Gait, Normal Reflexes, No Motor/Sensory Deficits Psychiatric: Normal Affect, Normal Mood Skin Exam: Warm, Dry, Intact, Normal Color, No Rash Lymphatic: No Adenopathy Course - Vital Signs Last Recorded V/S: Last Vital Signs Temp 98.7 F 03/06/21 15:16 Pulse 82 03/06/21 15:16 Resp 21 H 03/06/21 15:16 BP 146/68 H 03/06/21 15:16 Pulse Ox 90 L 03/06/21 15:16 - Orders/Labs/Meds Orders: Active Orders 24 hr Category Date Time Status Chest 2V [CR] Stat Exams 03/06/21 15:30 Taken Labs: Laboratory Tests 03/06/21 03/06/21 Range/Units 15:35 15:35 WBC 8.0 (4.0-11.0) 10^3/uL RBC 4.65 (4.00-5.50) x10^6/uL Hgb 12.1 (12.0-16.0) g/dL Hct 38.5 (37.0-47.0) % MCV 82.8 L (83.0-97.0) fL MCH 26.0 L (27.0-32.0) pg MCHC 31.4 L (32.0-36.0) g/dL RDW Coeff of June 16.0 H (11.0-15.0) % Plt Count 216 (150-400) 10^3/uL Immature Gran % (Auto) 1.4 (0.0-4.9) % Neut % (Auto) 65.1 (41-71) % Lymph % (Auto) 22.6 L (24-44) % Phillips % (Auto) 9.9 (0-10) % Eos % (Auto) 0.9 (0-6) % Baso % (Auto) 0.1 (0-1) % Neut # (Auto) 5.18 (1.80-8.00) x10^3/uL Lymph # (Auto) 1.80 (0.60-5.00) 10^3/uL Phillips # (Auto) 0.79 (0.00-1.50) 10^3/uL Eos # (Auto) 0.07 (0.00-1.50) 10^3/uL Baso # (Auto) 0.01 (0.00-0.50) 10^3/uL Immature Gran # (Auto) 0.11 (0.00-0.49) 10^3/uL Sodium 142 (136-145) mEq/L Potassium 3.7 (3.5-5.0) mEq/L Chloride 102 (98-106) mEq/L Carbon Dioxide 34 H (21-32) mmol/L BUN 34 H D (7-18) mg/dL Creatinine 1.5 H (0.6-1.0) mg/dL Est Cr Clr Drug Dosing 23.78 mL/min Estimated GFR (MDRD) 33 L (>=60) mL/min Glucose 109 H D (75-99) mg/dL Calcium 8.2 L (8.4-10.1) mg/dL Troponin I < 0.017 (0.00-0.06) ng/mL C-Reactive Protein 0.2 (0.2-0.8) mg/dL NT-Pro-B Natriuret Pep 606 (0-1000) pg/mL Departure - Departure Time of Disposition: 16:26 Disposition: Home, Self-Care 01 Condition: Fair Clinical Impression: Pneumonitis, Post-tussive syncope - Discharge Information *PRESCRIPTION DRUG MONITORING PROGRAM REVIEWED*: Not Applicable *COPY OF PRESCRIPTION DRUG MONITORING REPORT IN PATIENT DAVE: Not Applicable Prescriptions: predniSONE [Prednisone] 20 mg PO DAILY 3 Days #3 tablet Instructions: Community-Acquired Pneumonia, Adult Referrals: John Benitez MD [Primary Care Provider] - Forms: ED Department Discharge Additional Instructions: - Continue Levaquin and nebulizers as previously prescribed - Start prednisone 20 mg daily for the next 3 days - Rest and push fluids. No overexertion - Recommend Mucinex DM twice daily as needed - Follow up for recheck as scheduled - Return to ED for any emergent needs Sepsis Event Note (ED) - Evaluation Sepsis Screening Result: No Definite Risk - Focused Exam Vital Signs: Vital Signs Temp Pulse Resp BP Pulse Ox 03/06/21 15:16 98.7 F 82 21 H 146/68 H 90 L - Problem List & Annotations (1) Pneumonitis SNOMED Code(s): 588617477 Code(s): J18.9 - PNEUMONIA, UNSPECIFIED ORGANISM Status: Acute Current Visit: Yes (2) Post-tussive syncope SNOMED Code(s): 59982203 Code(s): R05 - COUGH Status: Acute Current Visit: Yes Annotation/Co mment:: POST TUSSIVE NEAR SYNCOPE - My Orders Last 24 Hours: My Active Orders 03/06/21 15:30 Chest 2V [CR] Stat - Assessment/Plan Last 24 Hours: My Active Orders 03/06/21 15:30 Chest 2V [CR] Stat Assessment:: Pneumonitis Post Tussive Near Syncope Plan: As above.
== END 2021-03-06 16:45 | disposition home or self-care (01) ==
LOC: CC.ED 15:10
DX: J18.9 Pneumonia, unspecified organism (principal); R55 Syncope and collapse; I10 Essential (primary) hypertension; I25.2 Old myocardial infarction; Z79.82 Long term (current) use of aspirin; Z79.899 Other long term (current) drug therapy; Z88.7 Allergy status to serum and vaccine; Z91.040 Latex allergy status; Z88.1 Allergy status to other antibiotic agents; Z91.048 Other nonmedicinal substance allergy status; Z95.1 Presence of aortocoronary bypass graft
CPT/HCPCS: 36415; 71046; 80048; 83880; 84484; 85025; 86140; 93005; 93010; 99284; 99285-25

== ENCOUNTER 2022-03-30 18:21 | Emergency (ER) | payer MEDICARE, BC ==
[2022-03-30] MEDS: Iopamidol 755 Mg/ML 100 ML Bottle IVPUSH ONE (19:59)
[2022-03-30 20:30] VITALS: BP 125/63; PULSE 81
== END 2022-03-30 21:19 | disposition home or self-care (01) ==
LOC: CC.ED 18:21
DX: K64.8 Other hemorrhoids (principal); I10 Essential (primary) hypertension; I25.2 Old myocardial infarction; Z90.49 Acquired absence of other specified parts of digestive tract; Z91.040 Latex allergy status; Z88.7 Allergy status to serum and vaccine; Z88.8 Allergy status to other drugs, medicaments and biological substances; Z79.899 Other long term (current) drug therapy; Z79.01 Long term (current) use of anticoagulants
CPT/HCPCS: 36415; 74176; 80053; 83735; 85025; 99284; 99285; Q9967

== ENCOUNTER → 2023-01-11 | Day surgery (SDC) | payer MEDICARE, BC ==
[~2023-01-11] MED LIST: Ondansetron 4 MG/2 ML SDV ONE; Propofol 200 MG/20 ML SDV ONE; fentaNYL 50 MCG/ML SDV ONE
[2023-01-11] MEDS: Lactated Ringers 1,000 ML IV SCH (10:27)
[2023-01-11] MEDS: Lidocaine 1% with EPINEPHrine 1:100,000 20 ML MDV INJECT ONE (11:22)
[2023-01-11 12:32] VITALS: BP 133/51; PULSE 65
== END ==
LOC: CC.SDS 09:42
PROVIDERS: ATTEND Family Medicine
DX: L72.0 Epidermal cyst (principal); L02.92 Furuncle, unspecified; I10 Essential (primary) hypertension; I77.9 Disorder of arteries and arterioles, unspecified; D50.9 Iron deficiency anemia, unspecified; Z88.1 Allergy status to other antibiotic agents; Z88.7 Allergy status to serum and vaccine; Z91.040 Latex allergy status; Z79.01 Long term (current) use of anticoagulants; Z79.899 Other long term (current) drug therapy
CPT/HCPCS: 00400; 00940; J2405; J2704; J3010; J3490; J7120